=== PATIENT | female | born 1965 | race Caucasian/White ===

== ENCOUNTER 2018-10-28 07:38 | Inpatient (IN) | payer MEDICARE, BC ==
[~2018-10-28] VITALS: Ht 167.6 cm; Wt 68.1 kg
--- NOTE | 2018-10-28 08:19 | HPN ---
Date/Time of Note Date/Time of Note DATE: 10/28/18 TIME: 08:18 Interval H&P Admission Note Pt. seen H&P reviewed: No system changes TY BAILEY MD Oct 28, 2018 08:19
[2018-10-28] MEDS ORDERED: BACL10TA INTRACATH (08:40)
[2018-10-28] MEDS ORDERED: OMEP20CA16 PO (08:41)
[2018-10-28 08:43] VITALS: Ht 167.6 cm; Wt 68.1 kg
[2018-10-28 08:44] VITALS: BP 126/61; PULSE 79; RESP 18
[2018-10-28] MEDS ORDERED: FURO20TA3 PO (08:49)
[2018-10-28] MEDS ORDERED: CLIN300C10 PO (08:50)
[2018-10-28] MEDS ORDERED: SULF1TAB31 PO (08:50)
[2018-10-28] MEDS ORDERED: METR500T PO (08:51)
[2018-10-28] MEDS ORDERED: MIDAZOLAM 1 MG/ML 2 ML INJ ONE (08:52)
[2018-10-28] MEDS ORDERED: LIDOCAINE 2% (SDV) 5 ML INJ ONE (08:52)
[2018-10-28] MEDS ORDERED: FENTAnyl 50 MCG/ML VIAL ONE (08:52)
[2018-10-28] MEDS ORDERED: PROPOFOL 0 ML ONE (08:52)
[2018-10-28] MEDS ORDERED: CEFAZOLIN 1 GM INJ ONE (08:52)
[2018-10-28] MEDS ORDERED: LACTATED RINGER'S 1,000 ML IV SCH (09:00)
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
[2018-10-28] MEDS ORDERED: FUROSEMIDE 20 MG INJ IV ONE ×2 (11:30→22:05)
[2018-10-28] MEDS ORDERED: ZOLPIDEM 5 MG TAB PO PRN (11:30)
[2018-10-28] MEDS ORDERED: ACETAMINOPHEN 325 MG TAB PO PRN (11:30)
[2018-10-28] MEDS ORDERED: ONDANSETRON 4 MG INJ IV PRN (11:30)
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
[2018-10-28 12:35] VITALS: BP 104/51; PULSE 81; RESP 18
[2018-10-28] MEDS ORDERED: PIPER-TAZO 3.375 GM IV (PMX) 100 ML IVPB SCH (14:00)
[2018-10-28] MEDS: DEXTROSE 5%-0.45% NACL 1,000 ML IV SCH ×2 (14:00→22:42)
[2018-10-28] MEDS ORDERED: metroNIDAZOLE 500 MG/NS (PMX) 100 ML IVPB SCH (14:00)
[2018-10-28] MEDS: DOCUSATE SODIUM 100 MG CAP PO SCH ×2 (14:01→22:12)
--- NOTE | 2018-10-28 14:45 | RADRPT ---
Echocardiogram Report Patient Name: UJHI PUGAPatient ID: [id number] : 1965 (53y 7m)Study Date: 10/28/2018 12:40:39 PM Gender: FAccession #: [id number] Tech: Brendan Jose [facility] Location: [address] Ref.Physician: BIBI MUNIZ Height(Cm): BSA: Weight(Kg): Quality: Technically Difficult StudyAccount #: Procedures: Echocardiographic Report: Transthoracic echocardiogram with complete 2D, M-Mode, and doppler examination. Indications: Pre-op. Measurements: 2D/M Mode Doppler Measurement Value Normal Range Measurement Value Normal Range LVIDd 2D 4.4 [ 3.8 - 5.2 ] cm AV Peak Mario 1.9 [ 100.0 - 170.0 ] cm/sec LVIDs 2D 2.5 [ 2.2 - 3.5 ] cm AV Peak PG 14.0 [ 2.0 - 9.0 ] mmHg LVPWd 2D 1.0 [ 0.6 - 0.9 ] cm LVOT Peak Mario 1.4 [ 70.0 - 110.0 ] cm/sec IVSd 2D 1.0 [ 0.6 - 0.9 ] cm LVOT Peak PG 7.0 [ 2.0 - 6.0 ] mmHg AoR Diam 2D 2.0 [ 2.3 - 3.1 ] cm MV E Peak Mario 1.3 [ 60.0 - 130.0 ] cm/sec EDV 2D 88.6 [ 46.0 - 106.0 ] ml MV A Peak Mario 0.9 [ 100.0 - 120.0 ] cm/sec ESV 2D 21.7 [ 14.0 - 42.0 ] ml MV E/A 1.4 [ 0.8 - 1.5 ] ratio EF 2D 75.5 [ 54.0 - 74.0 ] percent MV Decel Time 123 [ 104 - 258 ] msec LA Dimen 2D 3.5 [ 2.7 - 3.8 ] cm Lat E` Mario 0.2 [ 10.0 - 15.0 ] cm/sec Lateral E/E` 7.6 [ 1.0 - 2.0 ] ratio Med E` Mario 0.1 cm/sec MV E/A 1.4 [ 0.8 - 1.5 ] ratio TR Peak Mario 2.5 [ 100.0 - 280.0 ] cm/sec TR Peak PG 24.0 mmHg RVSP 34.0 [ 10.0 - 36.0 ] mmHg Findings: Left Ventricle: Normal left ventricular systolic function. Normal left ventricular cavity size. Left ventricular wall thickness upper limits of normal. Ejection fraction is visually estimated at 65 %. Tissue Doppler/Mitral Doppler indices are within normal limits. Right Ventricle: Normal right ventricular size. Normal right ventricular systolic function. Left Atrium: The left atrium is normal in size. Right Atrium: The right atrium is normal in size. Mitral Valve: Mild mitral leaflet calcification. Mild mitral annular calcification. Trace mitral regurgitation. Aortic Valve: No significant aortic stenosis or insufficiency. Aortic cusps appear mildly calcified. Tricuspid Valve: Normal appearance of the tricuspid valve. Estimated peak PA systolic pressure 34 mmHg. There is mild tricuspid regurgitation. Pulmonic Valve: Normal pulmonic valve appearance. Pericardium: Normal pericardium with no significant pericardial effusion. Aorta: Normal aortic root. IVC: Normal size and normal respiratory collapse consistent with normal right atrial pressure. Conclusions: Normal left ventricular systolic function. Normal left ventricular cavity size. Left ventricular wall thickness upper limits of normal. Ejection fraction is visually estimated at 65 %. Tissue Doppler/Mitral Doppler indices are within normal limits. Mild mitral leaflet calcification. Mild mitral annular calcification. Trace mitral regurgitation. No significant aortic stenosis or insufficiency. Aortic cusps appear mildly calcified. Normal appearance of the tricuspid valve. Estimated peak PA systolic pressure 34 mmHg. There is mild tricuspid regurgitation. Electronically Signed By: Domenic Monreal 2018-10-28 14:44:06 [facility]
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
[2018-10-28] MEDS: LEVOFLOXACIN 750MG/D5W (PMX) 150 ML IVPB SCH (15:46)
[2018-10-28] MEDS: CLINDAMYCIN 900 MG/D5W (PMX) 50 ML IVPB SCH ×2 (18:09→22:41)
[2018-10-28] MEDS: PANTOPRAZOLE (EC) 40 MG TAB PO SCH (18:13)
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
[2018-10-28] MEDS ORDERED: COLLAGENASE 5 GM (UD JAR) TOP PRN (19:30)
[2018-10-28] MEDS ORDERED: PENDING SANTYL ORDER FOR WOUND CARE XX PRN (19:30)
[2018-10-28 20:35] VITALS: BP 104/56; PULSE 72; RESP 19
[2018-10-28] MEDS: BACLOFEN IT SCH (21:30)
[2018-10-28] MEDS: FAMOTIDINE 20 MG TAB PO SCH (21:57)
[2018-10-28] MEDS: COLLAGENASE 5 GM (UD JAR) TOP SCH (22:07)
[2018-10-29] VITALS (25 sets, daily range): BP systolic 102–138; BP diastolic 42–63; PULSE 63–97; RESP 10–20
[2018-10-29] MEDS: PANTOPRAZOLE (EC) 40 MG TAB PO SCH ×2 (05:24→18:32)
[2018-10-29] MEDS: CLINDAMYCIN 900 MG/D5W (PMX) 50 ML IVPB SCH ×3 (06:35→23:35)
[2018-10-29] MEDS ORDERED: SEVOFLURANE 15 MIN ONE (07:00)
[2018-10-29] MEDS ORDERED: LIDOCAINE 1% (MPF) 30 ML INJ ONE (07:12)
[2018-10-29] MEDS ORDERED: BUPIVACAINE 0.5% (SDV) 30 ML INJ ONE (07:12)
[2018-10-29] MEDS ORDERED: BUPIVACAINE 0.25% (MPF) 30 ML INJ ONE (07:12)
--- NOTE | 2018-10-29 07:29 | PREAC ---
Date/Time of Note Date/Time of Note DATE: 10/29/18 TIME: 07:27 Anesthesia Eval and Record Evaluation Time Pre-Procedure Interview DATE: 10/29/18 TIME: 07:27 Age 53 Sex female NPO: 8 hrs Preoperative diagnosis Left Middle finger infection Planned procedure Left Middle Finger I & D Past Medical History Past Medical History: Includes Cardio: HTN, Dyslipidemia Pulm: Sleep Apnea Neuro: CVA (Right Hemiparesis), Other Heme: Anemia Surgery & Anesthesia Issues No known issue Meds Anticoagulation: No Beta Ava within 24 hr: No Reason Beta Ava not given: Pt. not on B-Ava Reported Medications Metronidazole* (Flagyl*) 500 Mg Tablet, 500 MG PO BID, TAB 10/28/18 Sulfamethoxazole/Trimethoprim* (Bactrim Ds* Tablet) 1 Each Tablet, 2 TAB PO BID, TAB 10/28/18 Clindamycin Hcl* (Clindamycin Hcl*) 300 Mg Capsule, 300 MG PO Q8, CAP 10/28/18 Furosemide* (Furosemide*) 20 Mg Tablet, 20 MG PO DAILY, #60 TAB 10/28/18 Omeprazole* (Omeprazole*) 20 Mg Capsule.dr, 20 MG PO BID, #60 CAP 10/28/18 Baclofen* (Baclofen*) 10 Mg Tablet, 960 MCG INTRACATH DAILY, TAB 10/28/18 Current Medications Dextrose/Sodium Chloride 1,000 ml @ 75 mls/hr [id number] IV ; Start 10/28/18 at 11:08 Ondansetron HCl (Zofran Inj) 4 mg Q6H PRN IV NAUSEA/VOMITING; Start 10/28/18 at 11:30 Acetaminophen (Tylenol Tab) 650 mg Q6H PRN PO .PAIN 1-3 OR TEMP; Start 10/28/18 at 11:30 Docusate Sodium (Colace) 100 mg Q12H PO Last administered on 10/28/18at 22:12; Admin Dose 100 MG; Start 10/28/18 at 11:30 Zolpidem Tartrate (Ambien) 5 mg QHS PRN PO .INSOMNIA; Start 10/28/18 at 11:30 Famotidine (Pepcid) 20 mg Q12 PO Last administered on 10/28/18at 21:57; Admin Dose 20 MG; Start 10/28/18 at 21:00 Furosemide (Lasix) 20 mg DAILY PO ; Start 10/29/18 at 09:00 Pantoprazole (Protonix Tab) 40 mg BID@0600,1800 PO Last administered on 10/28/18at 18:13; Admin Dose 40 MG; Start 10/28/18 at 18:00 Levofloxacin/ Dextrose 150 ml @ 100 mls/hr Q24H IVPB Last administered on 10/28/18at 15:46; Admin Dose 100 MLS/HR; Start 10/28/18 at 13:00 Clindamycin HCl/ Dextrose 50 ml @ 50 mls/hr Q8 IVPB Last administered on 10/29/18at 06:35; Admin Dose 50 MLS/HR; Start 10/28/18 at 17:30 Collagenase (Santyl) 1 applic DAILY TOP Last administered on 10/28/18at 22:07; Admin Dose 1 APPLIC; Start 10/28/18 at 21:00 Collagenase (Santyl) 1 applic PRN PRN TOP WHEN SOILED; Start 10/28/18 at 19:30 Patient Own Medication 1 ea Q24H IT ; Start 10/28/18 at 21:30 Meds reviewed: Yes Allergies Coded Allergies: piperacillin (Verified Allergy, Unknown, 10/28/18) vancomycin (Verified Allergy, Unknown, 10/28/18) Allergies Reviewed: Yes Labs/Studies Labs Reviewed: Reviewed by anesthesiologist Result Diagram: 10/29/1842010/29/18420 Laboratory Tests 10/29/18 04:21 Blood Bank Test 10/28/18 09:27 Antibody Screen NEGATIVE Blood Product Summary Counts Blood Type A POSITIVE Crossmatch Red Blood Cells test: N/A Studies: ECG (NSR), CXR (n/a) Pre-procedure Exam Last vitals Vital Signs Date Temp Pulse Resp B/P (MAP) Pulse Ox O2 O2 Flow FiO2 Time Delivery Rate 10/29/18 99.1 97 18 102/53 95 00:47 (69) 10/28/18 Room Air 12:35 Airway: Adequate mouth opening, Adequate thyromental dist Mallampati: Mallampati II Teeth: Normal Lung: Normal Heart: Normal ASA Physical Status ASA physical status: 3 Emergency: None Planned Anesthetic General/MAC: ETT, LMA Planned Pain Management Parenteral pain med Pre-operative Attestations Prior to commencing anesthesia and surgery, the patient was re-evaluated, there was verification of: *The patient's identity *The results of appropriate recent lab work and preoperative vital signs *The above evaluation not changing prior to induction *Anesthetic plan, risk benefits, alternative and complications discussed with patient/family; questions answered; patient/family understands, accepts and wishes to proceed. GABRIEL DUQUE MD Oct 29, 2018 07:29
[2018-10-29] MEDS ORDERED: FENTAnyl 50 MCG/ML VIAL IV PRN ×2 (07:30)
[2018-10-29] MEDS ORDERED: LABETALOL HCL 20MG INJ IV PRN (07:30)
[2018-10-29] MEDS ORDERED: OXYCODONE/ACETAMINOPHEN (5/325) TAB PO PRN ×3 (07:30→09:00)
[2018-10-29] MEDS ORDERED: HYDROmorphONE 1 MG/5 ML IV SYRINGE IV PRN ×2 (07:30)
[2018-10-29] MEDS ORDERED: hydrALAzine 20 MG INJ IV PRN (07:30)
[2018-10-29] MEDS ORDERED: METOCLOPRAMIDE 10 MG INJ IV PRN (07:30)
[2018-10-29] MEDS ORDERED: EPHEDrine SULFATE 50 MG/5 ML SYG IV PRN (07:30)
[2018-10-29] MEDS ORDERED: ONDANSETRON 4 MG INJ IV PRN (07:30)
[2018-10-29] MEDS ORDERED: MIDAZOLAM 1 MG/ML 2 ML INJ ONE (07:45)
[2018-10-29] MEDS ORDERED: PROPOFOL 20 ML ONE (07:45)
[2018-10-29] MEDS ORDERED: ONDANSETRON 4 MG INJ ONE (08:22)
[2018-10-29] MEDS ORDERED: METOCLOPRAMIDE 10 MG INJ ONE (08:22)
[2018-10-29] MEDS ORDERED: FENTAnyl 50 MCG/ML VIAL ONE (08:22)
[2018-10-29] MEDS ORDERED: DEXAMETHASONE 4 MG/ML 5 ML INJ ONE (08:22)
--- NOTE | 2018-10-29 08:33 | SIPON ---
Date/Time of Note Date/Time of Note DATE: 10/29/18 TIME: 08:28 Operative Report Preoperative Diagnosis infected open fracture distal phalange left long finger infecdted tendon steath left long finger ruptutred fdp tendon sequestrum distal pahalange left long finger Postoperative Diagnosis same Operation/Procedure Performed i and sequestectomy debridgement Surgeon gianfranco catering assistant none Anesthesia: general Estimated blood loss: 10 - 50 ml's Transfusion Required preoo 3 units packed cells one unit in or Specimen junbck pus cutlurees sequestrium Grafts/Implants none Complications none TY BAILEY MD Oct 29, 2018 08:33
[2018-10-29] MEDS ORDERED: POLYMYXIN/BACITRACIN 1L IRRIG IRR ONE (08:35)
--- NOTE | 2018-10-29 08:37 | PAC ---
Date/Time of Note Date/Time of Note DATE: 10/29/18 TIME: 08:37 Post-Anesthesia Notes Post-Anesthesia Note Last documented vital signs Vital Signs Date Temp Pulse Resp B/P (MAP) Pulse Ox O2 O2 Flow FiO2 Time Delivery Rate 10/29/18 99.1 97 18 102/53 95 face mask 8L 08:47 (69) 10/28/18 Room Air 12:35 Activity: WNL Respiratory function: WNL Cardiovascular function: WNL Mental status: Baseline Pain reasonably controlled: Yes Hydration appropriate: Yes Nausea/Vomiting absent: Yes GABRIEL DUQUE MD Oct 29, 2018 08:37
--- NOTE | 2018-10-29 09:16 | OPR ---
DATE OF OPERATION: 10/29/2018 PREOPERATIVE DIAGNOSES: Infection of left hand long finger, open fracture distal phalanx and infected, osteomyelitis, distal phalanx and infected, flexor tendon sheath infection, rupture of the flexor digitorum profundus. POSTOPERATIVE DIAGNOSES: Infection of left hand long finger, open fracture distal phalanx and infected, osteomyelitis, distal phalanx and infected, flexor tendon sheath infection, rupture of the flexor digitorum profundus. OPERATION PERFORMED: Debridement, sequestrectomy, irrigation of the wounds, leave them open cultures. ANTHROPOLOGICAL LINGUIST: Staff. SAP HANA DEVELOPER: Rowdy Peoples M.D. ANESTHESIA: General anesthesia. HISTORY: The patient was about almost 3 weeks now since she has tried to feed her horse. The horse bit her finger. It swelled up, got massive infected. She came into my office in [place] draining gross pus out of the tip of the finger, finger swollen like a sausage and out straight. My assessment was that she had an infected open fracture undoubtedly an osteomyelitis probably involvement of the flexor tendons and rupture of the flexor tendons. On that Sunday, we did add a drain the wound just to decompress it and scheduled for surgical intervention here and I was going on vacation. [facility] They told me that they could not make any arrangements for an alternative surgeon, so I scheduled her yesterday and she was so anemic. The surgery was delayed while they got some blood in to her. Overnight she received 3 units of packed cells to get her hemoglobin up to a safe level and received 1 more unit this morning intraoperatively. She was that anemic. This is an ill lady. DESCRIPTION OF PROCEDURE: At surgery, we put Coban around the upper arm for hemostasis, open the draining wound on the dorsum of the finger at the proximal nail bed and excised proximal nail bed, proximal distal phalanx that sequestrum just soaked out. The base of the distal phalanx is gone and the insertion of the profundus tendon is gone. There was a draining sinus in the palm of the finger and communicated the flexor tendon sheath that was opened and debrided as well. We made one more incision on the dorsal finger, but there was no pus of the dorsal finger. We sent cultures, although point out to any reader that she has been pretreated for a week with other antibiotics. How much meaning the cultures will have at this time is doubtful because the pretreatment will give either negative or false results. We irrigated the wound copiously and then packed everything open, put a bulky dressing on. Her finger today as compared to last week is actually less swollen. The drainage helps. She is an inpatient now on IV antibiotics and we will treat her as an inpatient for a few days until IV antibiotics can be established at home and then I will follow up on her as an outpatient. The patient will be seen by the hospitalist and by Dr. Paige, infectious disease. Discussion The hoped for result would be resolution of the infection. Closure of the wounds by secondary intention. I use zero sutures, The wounds were all packed open. I plan to do the dressing changes in the office next sunday. We will change the dressings ourselves, serially until she closures the wounds by herself. I plan to splint the dip joint in neutral extension for months untill she - hopefully- forms a painless pseudoarthrois at the level of the now excessed dpi joint. We will start motion of the pip joint as soon as practicable and hope for some motion there with time. Dictated By: TY DAHL/NTS Conf#: [id number] DID#: [id number] CC: BIBI MUNIZ MD; TY BAILEY MD;*EndCC* MTDD
--- NOTE | 2018-10-29 11:08 | CONS ---
Consult Date/Type/Reason Admit Date/Time Oct 28, 2018 at 10:55 Initial Consult Date 10/28/18 Type of Consultation: cv Date/Time of Note DATE: 10/29/18 TIME: 11:04 Subjective Interventional cardiology follow-up progress note Subjective: Case discussed with the . Discussed with the staff. Patient with no chest pain or pressure. Denies any active bleeding to me. No shortness of breath to me. According to the patient has a history of anemia and has had Haque's esophagus but has not had any regular follow-up Events noted: Status post debridement 10/29/2018 Objective: General: no acute distress HEENT: NC/AT. pupils are equal. round. NECK: NO JVD. no stridor. CV: RRR. systolic murmur; no gallop or rubs. PULM: no wheezing or rhonchi. GI: SOFT, NT, ND, no rebound or guarding Extremity: Right upper extremity is contracted Left hand finger edematous is in dressing neuro: awake and alert, OX2. Psych: calm and pleasant rectal: deferred l Echocardiogram was personally reviewed which shows: Normal left ventricular systolic function. Normal left ventricular cavity size. Left ventricular wall thickness upper limits of normal. Ejection fraction is visually estimated at 65 %. Tissue Doppler/Mitral Doppler indices are within normal limits. Mild mitral leaflet calcification. Mild mitral annular calcification. Trace mitral regurgitation. No significant aortic stenosis or insufficiency. Aortic cusps appear mildly calcified. Normal appearance of the tricuspid valve. Estimated peak PA systolic pressure 34 mmHg. There is mild tricuspid regurgitation. EKG was personally reviewed which shows: Normal sinus rhythm. Low voltage. Cannot rule anterior infarct Objective Vitals Vital Signs Date Temp Pulse Resp B/P (MAP) Pulse Ox O2 O2 Flow FiO2 Time Delivery Rate 10/29/18 98.0 74 112/60 95 Nasal 09:51 (77) Cannula 10/29/18 12 3.0 09:32 Intake and Output 10/28/18 10/28/18 10/29/18 1515:00 23:00 07:00 IntakeIntake Total 1270 ml 50 ml OutputOutput Total 750 ml BalanceBalance 520 ml 50 ml Results/Medications Result Diagram: 10/29/18 0421 10/29/18 0421 Results 24 hrs Laboratory Tests Test 10/28/18 14:45 10/28/18 22:00 10/29/18 04:21 10/29/18 07:13 Urine Color YELLOW Urine Clarity SLIGHTLY CLOUDY A Urine pH 7.0 Urine Specific 1.015 [place] Urine Ketones NEGATIVE Urine Nitrite NEGATIVE Urine Bilirubin NEGATIVE Urine NEGATIVE Urobilinogen Urine Leukocyte NEGATIVE Esterase Urine 6 H Microscopic RBC Urine 1 Microscopic WBC Urine Squamous FEW Epithelial Cells Urine Mucus FEW A Urine Hemoglobin NEGATIVE Urine Glucose NEGATIVE Urine Total NEGATIVE Protein White Blood 6.6 # 9.0 # Count Red Blood Count 3.88 L 4.36 Hemoglobin 6.9 #*L 8.0 L Hematocrit 25.3 L 28.5 L Mean Corpuscular 65.2 L 65.4 L Volume Mean Corpuscular 17.8 #L 18.3 L Hemoglobin Mean Corpuscular 27.3 L 28.1 L Hemoglobin Shahrzad nt Red Cell 29.0 #H 29.3 H Distribution Width Platelet Count 587 H 546 H Mean Platelet 9.2 9.1 Volume Immature 0.300 0.300 Granulocytes % Neutrophils % 71.8 76.6 Lymphocytes % 15.9 12.4 L Monocytes % 11.0 10.1 Eosinophils % 0.5 0.2 Basophils % 0.5 0.4 Nucleated Red 1.4 H 2 H Blood Cells % Immature 0.020 0.030 Granulocytes # Neutrophils # 4.7 6.9 Lymphocytes # 1.0 1.1 Monocytes # 0.7 0.9 Eosinophils # 0.0 0.0 Basophils # 0.0 0.0 Nucleated Red 0.1 H 0.1 H Blood Cells # Segmented 75 Neutrophils % (Manual) Band Neutrophils 3 % (Manual) Lymphocytes % 15 (Manual) Monocytes % 7 (Manual) Neutrophils # 6.8 (Manual) Band Neutrophils 0.2 # Lymphocytes 1.3 (Manual) Monocytes # 0.6 (Manual) Platelet INCREASED Estimate Polychromasia 3+ Hypochromasia 3+ Poikilocytosis 2+ Anisocytosis 3+ Microcytosis 3+ Sodium Level 138 Potassium Level 4.1 Chloride Level 100 Carbon Dioxide 30 Level Anion Gap 8 Blood Urea 14 Nitrogen Creatinine 0.75 Est Glomerular > 60 Filtrat Rate mL/min Glucose Level 71 Calcium Level 8.4 Phosphorus Level 3.2 Magnesium Level 1.5 L Total Bilirubin 0.4 Direct Bilirubin 0.00 Indirect 0.4 Bilirubin Aspartate Amino 23 Transf (AST/SGOT ) Alanine 26 Aminotransferase (ALT/SGPT) Alkaline 120 Phosphatase Total Protein 6.4 Albumin 3.0 L Globulin 3.40 H Albumin/Globulin 0.88 Ratio Lab Scanned BLOOD TRANSFUSI Report ON Home Meds Reported Medications Metronidazole* (Flagyl*) 500 Mg Tablet, 500 MG PO BID, TAB 10/28/18 Sulfamethoxazole/Trimethoprim* (Bactrim Ds* Tablet) 1 Each Tablet, 2 TAB PO BID, TAB 10/28/18 Clindamycin Hcl* (Clindamycin Hcl*) 300 Mg Capsule, 300 MG PO Q8, CAP 10/28/18 Furosemide* (Furosemide*) 20 Mg Tablet, 20 MG PO DAILY, #60 TAB 10/28/18 Omeprazole* (Omeprazole*) 20 Mg Capsule.dr, 20 MG PO BID, #60 CAP 10/28/18 Baclofen* (Baclofen*) 10 Mg Tablet, 960 MCG INTRACATH DAILY, TAB 10/28/18 Medications Current Medications Dextrose/Sodium Chloride 1,000 ml @ 75 mls/hr [id number] IV ; Start 10/28/18 at 11:08 Ondansetron HCl (Zofran Inj) 4 mg Q6H PRN IV NAUSEA/VOMITING; Start 10/28/18 at 11:30 Acetaminophen (Tylenol Tab) 650 mg Q6H PRN PO .PAIN 1-3 OR TEMP; Start 10/28/18 at 11:30 Docusate Sodium (Colace) 100 mg Q12H PO Last administered on 10/28/18at 22:12; Admin Dose 100 MG; Start 10/28/18 at 11:30 Zolpidem Tartrate (Ambien) 5 mg QHS PRN PO .INSOMNIA; Start 10/28/18 at 11:30 Famotidine (Pepcid) 20 mg Q12 PO Last administered on 10/28/18at 21:57; Admin Dose 20 MG; Start 10/28/18 at 21:00 Furosemide (Lasix) 20 mg DAILY PO ; Start 10/29/18 at 09:00 Pantoprazole (Protonix Tab) 40 mg BID@0600,1800 PO Last administered on 10/28/18at 18:13; Admin Dose 40 MG; Start 10/28/18 at 18:00 Levofloxacin/ Dextrose 150 ml @ 100 mls/hr Q24H IVPB Last administered on 10/28/18at 15:46; Admin Dose 100 MLS/HR; Start 10/28/18 at 13:00 Clindamycin HCl/ Dextrose 50 ml @ 50 mls/hr Q8 IVPB Last administered on 10/29/18at 06:35; Admin Dose 50 MLS/HR; Start 10/28/18 at 17:30 Collagenase (Santyl) 1 applic DAILY TOP Last administered on 10/28/18at 22:07; Admin Dose 1 APPLIC; Start 10/28/18 at 21:00 Collagenase (Santyl) 1 applic PRN PRN TOP WHEN SOILED; Start 10/28/18 at 19:30 Patient Own Medication 1 ea Q24H IT ; Start 10/28/18 at 21:30 Hydromorphone HCl (Dilaudid) 0.2 mg PACU PRN IV MILD PAIN 1-3; Start 10/29/18 at 07:30; Stop 10/29/18 at 11:30 Hydromorphone HCl (Dilaudid) 0.4 mg PACU PRN IV MOD PAIN 4-6; Start 10/29/18 at 07:30; Stop 10/29/18 at 11:30 Fentanyl (Sublimaze) 25 mcg PACU ORDER PRN IV MILD PAIN 1-3; Start 10/29/18 at 07:30; Stop 10/29/18 at 11:30 Fentanyl (Sublimaze) 50 mcg PACU ORDER PRN IV MOD PAIN 4-6; Start 10/29/18 at 07:30; Stop 10/29/18 at 11:30 Oxycodone/ Acetaminophen (Percocet (5/ 325)) 1 tab PACU ORDER PRN PO .PAIN 1-5; Start 10/29/18 at 07:30; Stop 10/29/18 at 11:30 Ondansetron HCl (Zofran Inj) 4 mg PACU ORDER PRN IV NAUSEA/VOMITING; Start 10/29/18 at 07:30; Stop 10/29/18 at 11:30 Metoclopramide HCl (Reglan) 10 mg PACU ORDER PRN IV NAUSEA/VOMITING; Start 10/29/18 at 07:30; Stop 10/29/18 at 11:30 Labetalol HCl (Labetalol) 5 mg PACU ORDER PRN IV HIGH BLOOD PRESSURE; Start 10/29/18 at 07:30; Stop 10/29/18 at 11:30 Hydralazine HCl (Apresoline) 5 mg PACU ORDER PRN IV HIGH BLOOD PRESSURE; Start 10/29/18 at 07:30; Stop 10/29/18 at 11:30 Ephedrine Sulfate 5 mg PACU ORDER PRN IV BLOOD PRESSURE SUPPORT; Start 10/29/18 at 07:30; Stop 10/29/18 at 11:30 Oxycodone/ Acetaminophen (Percocet (5/ 325)) 1 tab Q4H PRN PO PAIN LEVEL 4-6; Start 10/29/18 at 09:00 Oxycodone/ Acetaminophen (Percocet (5/ 325)) 2 tab Q4H PRN PO PAIN LEVEL 6-10; Start 10/29/18 at 09:00 Assessment/Plan Hospital Course (Demo Recall) 1. Cardiovascular preop evaluation 2. Left finger infection/possible osteomyelitis: Status post IND 3. Severe anemia 4. History of anoxic brain injury and encephalopathy 5. Abnormal EKG but normal ejection fraction and echo 6. History of Haque's esophagus Recommendations: Postop care as per order to Transfusions as needed PPIs Consider GI consultation Thank you for his referral. We will continue to follow along with you TRACY CHAUDHARY MD [facility] TRACY CHAUDHARY MD Oct 29, 2018 11:08
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
[2018-10-29] MEDS: DOCUSATE SODIUM 100 MG CAP PO SCH (13:39)
[2018-10-29] MEDS: LEVOFLOXACIN 750MG/D5W (PMX) 150 ML IVPB SCH (13:39)
[2018-10-29] MEDS: FAMOTIDINE 20 MG TAB PO SCH (13:39)
[2018-10-29] MEDS: FUROSEMIDE 20 MG TAB PO SCH (13:47)
[2018-10-29] MEDS: DEXTROSE 5%-0.45% NACL 1,000 ML IV SCH (13:48)
--- NOTE | 2018-10-29 15:19 | CONS ---
Assessment/Plan Assessment/Plan Hospital Course (Demo Recall) Patient is awake and lying comfortably in bed no fevers overnight. WBC 9 no shift no bands BUN 14 creatinine 0.75 Wound cultures are pending Antimicrobials: Clindamycin and Levaquin Allergy: Lucho Mahoney Physical examination: Well-developed ill-appearing middle-aged woman who is awake in no distress. Head atraumatic normocephalic neck is supple chest rise symmetrical breath sounds diminished bases. Heart: S1-S2. Abdomen soft bowel sounds present. Extremities: Left hand dressing intact. Patient has multiple pressure sores on her lower extremities Assessment: 1. Infected left long finger/osteomyelitis, status post debridement 2. Multiple pressure sores lower extremities 3. History of OR 4. History of CVA Plan: Patient is stable I do not see cultures of the wound of her finger in a computer. She will require intravenous antibiotics for 6 weeks to treat osteomyelitis. Recommend PICC line placement. We may discharge her on IV daptomycin once a day and oral levofloxacin unless cultures show some growth then we adjust antibiotics per sensitivities Consultation Date/Type/Reason Admit Date/Time Oct 28, 2018 at 10:55 Initial Consult Date 10/28/18 Type of Consult id Date/Time of Note DATE: 10/29/18 TIME: 15:18 Exam/Review of Systems Exam Vitals Vital Signs Date Temp Pulse Resp B/P (MAP) Pulse Ox O2 O2 Flow FiO2 Time Delivery Rate 10/29/18 98.9 74 20 114/63 94 Nasal 14:10 (80) Cannula 10/29/18 3.0 09:32 Intake and Output 10/28/18 10/28/18 10/29/18 1515:00 23:00 07:00 IntakeIntake Total 1270 ml 50 ml OutputOutput Total 750 ml BalanceBalance 520 ml 50 ml Results Result Diagram: 10/29/18 0421 10/29/18 0421 Results 24hrs Laboratory Tests Test 10/28/18 22:00 10/29/18 04:21 10/29/18 07:13 White Blood Count 6.6 # 9.0 # Red Blood Count 3.88 L 4.36 Hemoglobin 6.9 #*L 8.0 L Hematocrit 25.3 L 28.5 L Mean Corpuscular Volume 65.2 L 65.4 L Mean Corpuscular Hemoglobin 17.8 #L 18.3 L Mean Corpuscular 27.3 L 28.1 L Hemoglobin Concent Red Cell Distribution Width 29.0 #H 29.3 H Platelet Count 587 H 546 H Mean Platelet Volume 9.2 9.1 Immature Granulocytes % 0.300 0.300 Neutrophils % 71.8 76.6 Lymphocytes % 15.9 12.4 L Monocytes % 11.0 10.1 Eosinophils % 0.5 0.2 Basophils % 0.5 0.4 Nucleated Red Blood Cells % 1.4 H 2 H Immature Granulocytes # 0.020 0.030 Neutrophils # 4.7 6.9 Lymphocytes # 1.0 1.1 Monocytes # 0.7 0.9 Eosinophils # 0.0 0.0 Basophils # 0.0 0.0 Nucleated Red Blood Cells # 0.1 H 0.1 H Segmented Neutrophils 75 % (Manual) Band Neutrophils % (Manual) 3 Lymphocytes % (Manual) 15 Monocytes % (Manual) 7 Neutrophils # (Manual) 6.8 Band Neutrophils # 0.2 Lymphocytes (Manual) 1.3 Monocytes # (Manual) 0.6 Platelet Estimate INCREASED Polychromasia 3+ Hypochromasia 3+ Poikilocytosis 2+ Anisocytosis 3+ Microcytosis 3+ Sodium Level 138 Potassium Level 4.1 Chloride Level 100 Carbon Dioxide Level 30 Anion Gap 8 Blood Urea Nitrogen 14 Creatinine 0.75 Est Glomerular Filtrat > 60 Rate mL/min Glucose Level 71 Calcium Level 8.4 Phosphorus Level 3.2 Magnesium Level 1.5 L Total Bilirubin 0.4 Direct Bilirubin 0.00 Indirect Bilirubin 0.4 Aspartate Amino 23 Transf (AST/SGOT) Alanine 26 Aminotransferase (ALT/SGPT) Alkaline Phosphatase 120 Total Protein 6.4 Albumin 3.0 L Globulin 3.40 H Albumin/Globulin Ratio 0.88 Lab Scanned Report BLOOD TRANSFUSION Medications Medication Current Medications Dextrose/Sodium Chloride 1,000 ml @ 75 mls/hr [id number] IV ; Start 10/28/18 at 11:08 Ondansetron HCl (Zofran Inj) 4 mg Q6H PRN IV NAUSEA/VOMITING; Start 10/28/18 at 11:30 Acetaminophen (Tylenol Tab) 650 mg Q6H PRN PO .PAIN 1-3 OR TEMP; Start 10/28/18 at 11:30 Docusate Sodium (Colace) 100 mg Q12H PO Last administered on 10/29/18at 13:39; Admin Dose 100 MG; Start 10/28/18 at 11:30 Zolpidem Tartrate (Ambien) 5 mg QHS PRN PO .INSOMNIA; Start 10/28/18 at 11:30 Famotidine (Pepcid) 20 mg Q12 PO Last administered on 10/29/18 13:39; Admin Dose 20 MG; Start 10/28/18 at 21:00 Furosemide (Lasix) 20 mg DAILY PO Last administered on 10/29/18 13:47; Admin Dose 20 MG; Start 10/29/18 at 09:00 Pantoprazole (Protonix Tab) 40 mg BID@0600,1800 PO Last administered on 18:13; Admin Dose 40 MG; Start 10/28/18 at 18:00 Levofloxacin/ Dextrose 150 ml @ 100 mls/hr Q24H IVPB Last administered on 10/29/18 13:39; Admin Dose 100 MLS/HR; Start 10/28/18 at 13:00 Clindamycin HCl/ Dextrose 50 ml @ 50 mls/hr Q8 IVPB Last administered on 10/29/18 06:35; Admin Dose 50 MLS/HR; Start 10/28/18 at 17:30 Collagenase (Santyl) 1 applic DAILY TOP Last administered on 10/28/18 22:07; Admin Dose 1 APPLIC; Start 10/28/18 at 21:00 Collagenase (Santyl) 1 applic PRN PRN TOP WHEN SOILED; Start 10/28/18 at 19:30 Patient Own Medication 1 ea Q24H IT ; Start 10/28/18 at 21:30 Oxycodone/ Acetaminophen (Percocet (5/ 325)) 1 tab Q4H PRN PO PAIN LEVEL 4-6; Start 10/29/18 at 09:00 Oxycodone/ Acetaminophen (Percocet (5/ 325)) 2 tab Q4H PRN PO PAIN LEVEL 6-10; Start 10/29/18 at 09:00 STEPHANIE CROW NP Oct 29, 2018 15:19
[2018-10-29] MEDS: COLLAGENASE 5 GM (UD JAR) TOP SCH (16:00)
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
[2018-10-29] MEDS ORDERED: BISACODYL (EC) 5 MG TAB PO ONE (18:30)
[2018-10-29] MEDS ORDERED: MAGNESIUM CITRATE 300 ML BTL PO ONE (20:00)
[2018-10-29] MEDS: BALSAM PERU/CASTOR OIL 60 GM TUBE TOP SCH ×2 (20:46)
[2018-10-29] MEDS ORDERED: POLYETHYLENE GLYCOL 3350 119 GM POWDER PO ONE (21:00)
[2018-10-29] MEDS: BACLOFEN IT SCH (21:01)
[2018-10-30] MEDS: DOCUSATE SODIUM 100 MG CAP PO SCH ×3 (00:29→22:40)
[2018-10-30 02:27] VITALS: BP 104/55; PULSE 65; RESP 16
[2018-10-30] MEDS: DEXTROSE 5%-0.45% NACL 1,000 ML IV SCH ×2 (02:59→07:58)
[2018-10-30] MEDS: PANTOPRAZOLE (EC) 40 MG TAB PO SCH ×2 (05:52→17:41)
[2018-10-30] MEDS: CLINDAMYCIN 900 MG/D5W (PMX) 50 ML IVPB SCH ×2 (05:52→14:22)
[2018-10-30] MEDS ORDERED: POLYETHYLENE GLYCOL 3350 119 GM POWDER PO ONE (06:00)
[2018-10-30] MEDS ORDERED: PROPOFOL 200 MG INJ ONE (07:00)
[2018-10-30 08:00] VITALS: BP 110/64; PULSE 80; RESP 18
[2018-10-30] MEDS ORDERED: BISACODYL (EC) 5 MG TAB PO ONE (08:00)
[2018-10-30] MEDS: BALSAM PERU/CASTOR OIL 60 GM TUBE TOP SCH ×4 (08:57→20:05)
[2018-10-30] MEDS: COLLAGENASE 5 GM (UD JAR) TOP SCH (08:57)
[2018-10-30] MEDS: FUROSEMIDE 20 MG TAB PO SCH (08:58)
--- NOTE | 2018-10-30 10:25 | CONS ---
Consult Date/Type/Reason Admit Date/Time Oct 28, 2018 at 10:55 Initial Consult Date 10/28/18 Type of Consultation: cv Date/Time of Note DATE: 10/30/18 TIME: 10:24 Subjective Interventional cardiology follow-up progress note Subjective: Case discussed with the . Discussed with the staff. Patient with no chest pain or pressure. Denies any active bleeding to me. she denies any shortness of breath to me. According to the patient has a history of anemia and has had Haque's esophagus but has not had any regular follow-up awaiting endoscopy Events noted: Status post debridement 10/29/2018 Objective: General: no acute distress HEENT: NC/AT. pupils are equal. round. NECK: NO JVD. no stridor. CV: RRR. systolic murmur; no gallop or rubs. PULM: no wheezing or rhonchi. GI: SOFT, NT, ND, no rebound or guarding Extremity: Right upper extremity is contracted Left hand finger edematous is in dressing neuro: awake and alert, OX2. Psych: calm and pleasant rectal: deferred l Echocardiogram was personally reviewed which shows: Normal left ventricular systolic function. Normal left ventricular cavity size. Left ventricular wall thickness upper limits of normal. Ejection fraction is visually estimated at 65 %. Tissue Doppler/Mitral Doppler indices are within normal limits. Mild mitral leaflet calcification. Mild mitral annular calcification. Trace mitral regurgitation. No significant aortic stenosis or insufficiency. Aortic cusps appear mildly calcified. Normal appearance of the tricuspid valve. Estimated peak PA systolic pressure 34 mmHg. There is mild tricuspid regurgitation. EKG was personally reviewed which shows: Normal sinus rhythm. Low voltage. Cannot rule anterior infarct Objective Vitals Vital Signs Date Temp Pulse Resp B/P (MAP) Pulse Ox O2 O2 Flow FiO2 Time Delivery Rate 10/30/18 97.8 80 18 110/64 96 08:00 (79) 10/30/18 Room Air 00:33 10/29/18 2.0 11:00 Intake and Output 10/29/18 10/29/18 10/30/18 1515:00 23:00 07:00 IntakeIntake Total 1230 ml 1520 ml 200 ml OutputOutput Total 60 ml 4000 ml BalanceBalance 1170 ml -2480 ml 200 ml Results/Medications Result Diagram: 10/29/181 10/29/18 0421 Results 24 hrs Laboratory Tests Test 10/30/18 03:00 Stool Occult Blood NEGATIVE Home Meds Reported Medications Metronidazole* (Flagyl*) 500 Mg Tablet, 500 MG PO BID, TAB 10/28/18 Sulfamethoxazole/Trimethoprim* (Bactrim Ds* Tablet) 1 Each Tablet, 2 TAB PO BID, TAB 10/28/18 Clindamycin Hcl* (Clindamycin Hcl*) 300 Mg Capsule, 300 MG PO Q8, CAP 10/28/18 Furosemide* (Furosemide*) 20 Mg Tablet, 20 MG PO DAILY, #60 TAB 10/28/18 Omeprazole* (Omeprazole*) 20 Mg Capsule.dr, 20 MG PO BID, #60 CAP 10/28/18 Baclofen* (Baclofen*) 10 Mg Tablet, 960 MCG INTRACATH DAILY, TAB 10/28/18 Medications Current Medications Dextrose/Sodium Chloride 1,000 ml @ 75 mls/hr [id number] IV Last administered on 10/30/18at 07:58; Admin Dose 75 MLS/HR; Start 10/28/18 at 11:08 Ondansetron HCl (Zofran Inj) 4 mg Q6H PRN IV NAUSEA/VOMITING Last administered on 10/29/18at 23:35; Admin Dose 4 MG; Start 10/28/18 at 11:30 Acetaminophen (Tylenol Tab) 650 mg Q6H PRN PO .PAIN 1-3 OR TEMP; Start 10/28/18 at 11:30 Docusate Sodium (Colace) 100 mg Q12H PO Last administered on 10/30/18at 00:29; Admin Dose 100 MG; Start 10/28/18 at 11:30 Zolpidem Tartrate (Ambien) 5 mg QHS PRN PO .INSOMNIA; Start 10/28/18 at 11:30 Furosemide (Lasix) 20 mg DAILY PO Last administered on 10/30/18at 08:58; Admin Dose 20 MG; Start 10/29/18 at 09:00 Pantoprazole (Protonix Tab) 40 mg BID@0600,1800 PO Last administered on 10/05 03/21at 05:52; Admin Dose 40 MG; Start 10/28/18 at 18:00 Levofloxacin/ Dextrose 150 ml @ 100 mls/hr Q24H IVPB Last administered on 10/29/18at 13:39; Admin Dose 100 MLS/HR; Start 10/28/18 at 13:00 Clindamycin HCl/ Dextrose 50 ml @ 50 mls/hr Q8 IVPB Last administered on 10/30/18at 05:52; Admin Dose 50 MLS/HR; Start 10/28/18 at 17:30 Collagenase (Santyl) 1 applic DAILY TOP Last administered on 10/30/18at 08:57; Admin Dose 1 APPLIC; Start 10/28/18 at 21:00 Patient Own Medication 1 ea Q24H IT ; Start 10/28/18 at 21:30 Oxycodone/ Acetaminophen (Percocet (5/ 325)) 1 tab Q4H PRN PO PAIN LEVEL 4-6; Start 10/29/18 at 09:00 Oxycodone/ Acetaminophen (Percocet (5/ 325)) 2 tab Q4H PRN PO PAIN LEVEL 6-10; Start 10/29/18 at 09:00 Assessment/Plan Hospital Course (Demo Recall) 1. Cardiovascular preop evaluation 2. Left finger infection/possible osteomyelitis: Status post IND 3. Severe anemia 4. History of anoxic brain injury and encephalopathy 5. Abnormal EKG but normal ejection fraction and echo 6. History of Haque's esophagus Recommendations: Postop care as per ortho Transfusions as needed PPIs follow up with GI consultation recommendations. Patient is awaiting endoscopy today. Patient is a stable from the cardiac standpoint for endoscopy with low risk of cardiovascular event. No further cardiac workup would be indicated. Thank you for his referral. We will continue to follow along with you TRACY CHAUDHARY MD [facility] TRACY CHAUDHARY MD Oct 30, 2018 10:25
[2018-10-30] MEDS: LEVOFLOXACIN 750MG/D5W (PMX) 150 ML IVPB SCH (12:53)
[2018-10-30 14:00] VITALS: BP 118/64; PULSE 88; RESP 18
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
[2018-10-30] MEDS ORDERED: TETANUS IMMUNE GLOB 250 UNIT SYG IM ONE (15:00)
[2018-10-30] MEDS ORDERED: LIDOCAINE 1% (MPF) 5 ML VIAL SC ONE (15:00)
[2018-10-30 15:32] VITALS: BP 109/60; PULSE 58; RESP 16
--- NOTE | 2018-10-30 15:46 | PREAC ---
Date/Time of Note Date/Time of Note DATE: 10/30/18 TIME: 15:44 Anesthesia Eval and Record Evaluation Time Pre-Procedure Interview DATE: 10/30/18 TIME: 15:44 Age 53 Sex female NPO: 8 hrs Preoperative diagnosis Severe Anemia Planned procedure EGD & Colonoscopy Past Medical History Past Medical History: Includes Cardio: Dyslipidemia Pulm: Sleep Apnea Neuro: CVA, Other (Right Hermiparesis) Heme: Anemia Surgery & Anesthesia Issues No known issue Meds Anticoagulation: No Beta Ava within 24 hr: No Reason Beta Ava not given: Pt. not on B-Ava Reported Medications Metronidazole* (Flagyl*) 500 Mg Tablet, 500 MG PO BID, TAB 10/28/18 Sulfamethoxazole/Trimethoprim* (Bactrim Ds* Tablet) 1 Each Tablet, 2 TAB PO BID, TAB 10/28/18 Clindamycin Hcl* (Clindamycin Hcl*) 300 Mg Capsule, 300 MG PO Q8, CAP 10/28/18 Furosemide* (Furosemide*) 20 Mg Tablet, 20 MG PO DAILY, #60 TAB 10/28/18 Omeprazole* (Omeprazole*) 20 Mg Capsule.dr, 20 MG PO BID, #60 CAP 10/28/18 Baclofen* (Baclofen*) 10 Mg Tablet, 960 MCG INTRACATH DAILY, TAB 10/28/18 Current Medications Dextrose/Sodium Chloride 1,000 ml @ 75 mls/hr [id number] IV Last administered on 10/30/18at 07:58; Admin Dose 75 MLS/HR; Start 10/28/18 at 11:08 Ondansetron HCl (Zofran Inj) 4 mg Q6H PRN IV NAUSEA/VOMITING Last administered on 10/29/18at 23:35; Admin Dose 4 MG; Start 10/28/18 at 11:30 Acetaminophen (Tylenol Tab) 650 mg Q6H PRN PO .PAIN 1-3 OR TEMP; Start 10/28/18 at 11:30 Docusate Sodium (Colace) 100 mg Q12H PO Last administered on 10/30/18at 00:29; Admin Dose 100 MG; Start 10/28/18 at 11:30 Zolpidem Tartrate (Ambien) 5 mg QHS PRN PO .INSOMNIA; Start 10/28/18 at 11:30 Furosemide (Lasix) 20 mg DAILY PO Last administered on 10/30/18at 08:58; Admin Dose 20 MG; Start 10/29/18 at 09:00 Pantoprazole (Protonix Tab) 40 mg BID@0600,1800 PO Last administered on 10/30/18at 05:52; Admin Dose 40 MG; Start 10/28/18 at 18:00 Levofloxacin/ Dextrose 150 ml @ 100 mls/hr Q24H IVPB Last administered on 10/30/18at 12:53; Admin Dose 100 MLS/HR; Start 10/28/18 at 13:00 Clindamycin HCl/ Dextrose 50 ml @ 50 mls/hr Q8 IVPB Last administered on 10/30/18at 14:22; Admin Dose 50 MLS/HR; Start 10/28/18 at 17:30 Collagenase (Santyl) 1 applic DAILY TOP Last administered on 10/30/18at 08:57; Admin Dose 1 APPLIC; Start 10/28/18 at 21:00 Patient Own Medication 1 ea Q24H IT ; Start 10/28/18 at 21:30 Oxycodone/ Acetaminophen (Percocet (5/ 325)) 1 tab Q4H PRN PO PAIN LEVEL 4-6; Start 10/29/18 at 09:00 Oxycodone/ Acetaminophen (Percocet (5/ 325)) 2 tab Q4H PRN PO PAIN LEVEL 6-10; Start 10/29/18 at 09:00 Enoxaparin Sodium (Lovenox) 40 mg DAILY SC ; Start 10/31/18 at 09:00 Meds reviewed: Yes Allergies Coded Allergies: piperacillin (Verified Allergy, Unknown, 10/28/18) vancomycin (Verified Allergy, Unknown, 10/28/18) Allergies Reviewed: Yes Labs/Studies Labs Reviewed: Reviewed by anesthesiologist Result Diagram: 10/29/1842010/29/18420 test: N/A Studies: ECG (n/a), CXR (n/a) Pre-procedure Exam Last vitals Vital Signs Date Temp Pulse Resp B/P (MAP) Pulse Ox O2 O2 Flow FiO2 Time Delivery Rate 10/30/18 97.9 58 16 109/60 97 Room Air 15:32 (76) 10/29/18 2.0 11:00 Airway: Adequate mouth opening, Adequate thyromental dist Mallampati: Mallampati II Teeth: Normal Lung: Normal Heart: Normal ASA Physical Status ASA physical status: 3 Emergency: None Planned Anesthetic General/MAC: MAC Planned Pain Management Parenteral pain med Pre-operative Attestations Prior to commencing anesthesia and surgery, the patient was re-evaluated, there was verification of: *The patient's identity *The results of appropriate recent lab work and preoperative vital signs *The above evaluation not changing prior to induction *Anesthetic plan, risk benefits, alternative and complications discussed with patient/family; questions answered; patient/family understands, accepts and wishes to proceed. GABRIEL DUQUE MD Oct 30, 2018 15:46
--- NOTE | 2018-10-30 15:48 | CONS ---
Assessment/Plan Assessment/Plan Hospital Course (Demo Recall) Patient is awake, looks comfortable, no fevers Wound cultures + diptheroids Antimicrobials: Clindamycin and Levaquin Allergy: Lucho Mahoney Physical examination: Well-developed ill-appearing middle-aged woman who is awake in no distress. Head atraumatic normocephalic neck is supple chest rise symmetrical breath sounds diminished bases. Heart: S1-S2. Abdomen soft bowel sounds present. Extremities: Left hand dressing intact. Patient has multiple pressure sores on her lower extremities Assessment: 1. Infected left long finger/osteomyelitis, status post debridement 2. Multiple pressure sores lower extremities 3. History of PR 4. History of CVA Plan: Patient is stable, change abx to Daptomycin and oral Levaquin to continue for 6 weeks, pending PICC, to GI lab today Consultation Date/Type/Reason Admit Date/Time Oct 28, 2018 at 10:55 Initial Consult Date 10/28/18 Type of Consult id Date/Time of Note DATE: 10/30/18 TIME: 15:46 Exam/Review of Systems Exam Vitals Vital Signs Date Temp Pulse Resp B/P (MAP) Pulse Ox O2 O2 Flow FiO2 Time Delivery Rate 10/30/18 97.9 58 16 109/60 97 Room Air 15:32 (76) 10/29/18 2.0 11:00 Intake and Output 10/29/18 10/29/18 10/30/18 1515:00 23:00 07:00 IntakeIntake Total 1230 ml 1520 ml 200 ml OutputOutput Total 60 ml 4000 ml BalanceBalance 1170 ml -2480 ml 200 ml Results Result Diagram: 10/29/18 0421 10/29/18 0421 Results 24hrs Laboratory Tests Test 10/30/18 03:00 Stool Occult Blood NEGATIVE Medications Medication Current Medications Dextrose/Sodium Chloride 1,000 ml @ 75 mls/hr [id number] IV Last administered on 10/30/18at 07:58; Admin Dose 75 MLS/HR; Start 10/28/18 at 11:08 Ondansetron HCl (Zofran Inj) 4 mg Q6H PRN IV NAUSEA/VOMITING Last administered on 10/29/18at 23:35; Admin Dose 4 MG; Start 10/28/18 at 11:30 Acetaminophen (Tylenol Tab) 650 mg Q6H PRN PO .PAIN 1-3 OR TEMP; Start 10/28/18 at 11:30 Docusate Sodium (Colace) 100 mg Q12H PO Last administered on 10/30/18at 00:29; Admin Dose 100 MG; Start 10/28/18 at 11:30 Zolpidem Tartrate (Ambien) 5 mg QHS PRN PO .INSOMNIA; Start 10/28/18 at 11:30 Furosemide (Lasix) 20 mg DAILY PO Last administered on 10/30/18at 08:58; Admin Dose 20 MG; Start 10/29/18 at 09:00 Pantoprazole (Protonix Tab) 40 mg BID@0600,1800 PO Last administered on 10/30/18at 05:52; Admin Dose 40 MG; Start 10/28/18 at 18:00 Levofloxacin/ Dextrose 150 ml @ 100 mls/hr Q24H IVPB Last administered on 10/30/18at 12:53; Admin Dose 100 MLS/HR; Start 10/28/18 at 13:00 Clindamycin HCl/ Dextrose 50 ml @ 50 mls/hr Q8 IVPB Last administered on 10/30/18at 14:22; Admin Dose 50 MLS/HR; Start 10/28/18 at 17:30 Collagenase (Santyl) 1 applic DAILY TOP Last administered on 10/30/18at 08:57; Admin Dose 1 APPLIC; Start 10/28/18 at 21:00 Patient Own Medication 1 ea Q24H IT ; Start 10/28/18 at 21:30 Oxycodone/ Acetaminophen (Percocet (5/ 325)) 1 tab Q4H PRN PO PAIN LEVEL 4-6; Start 10/29/18 at 09:00 Oxycodone/ Acetaminophen (Percocet (5/ 325)) 2 tab Q4H PRN PO PAIN LEVEL 6-10; Start 10/29/18 at 09:00 Enoxaparin Sodium (Lovenox) 40 mg DAILY SC ; Start 10/31/18 at 09:00 STEPHANIE CROW NP Oct 30, 2018 15:48
--- NOTE | 2018-10-30 16:05 | PAC ---
Date/Time of Note Date/Time of Note DATE: 10/30/18 TIME: 16:05 Post-Anesthesia Notes Post-Anesthesia Note Last documented vital signs Vital Signs Date Temp Pulse Resp B/P (MAP) Pulse Ox O2 O2 Flow FiO2 Time Delivery Rate 10/30/18 97.9 58 16 109/60 97 Room Air 16:08 (76) 10/29/18 2.0 11:00 Activity: WNL Respiratory function: WNL Cardiovascular function: WNL Mental status: Baseline Pain reasonably controlled: Yes Hydration appropriate: Yes Nausea/Vomiting absent: Yes GABRIEL DUQUE MD Oct 30, 2018 16:05
[2018-10-30 16:20] VITALS: BP 111/44; PULSE 64; RESP 23
[2018-10-30] MEDS ORDERED: hydrALAzine 20 MG INJ IV PRN (16:30)
[2018-10-30] MEDS ORDERED: FENTAnyl 50 MCG/ML VIAL IV PRN ×2 (16:30)
[2018-10-30] MEDS ORDERED: EPHEDrine SULFATE 50 MG/5 ML SYG IV PRN (16:30)
[2018-10-30] MEDS ORDERED: ONDANSETRON 4 MG INJ IV PRN (16:30)
[2018-10-30] MEDS ORDERED: LABETALOL HCL 20MG INJ IV PRN (16:30)
[2018-10-30] MEDS ORDERED: HYDROmorphONE 1 MG/5 ML IV SYRINGE IV PRN ×2 (16:30)
[2018-10-30] MEDS ORDERED: METOCLOPRAMIDE 10 MG INJ IV PRN (16:30)
[2018-10-30] MEDS: DAPTOMYCIN 410 MG in SOD CHLORIDE 0.9% 100 ML IVPB SCH (17:38)
[2018-10-30] MEDS: LACTULOSE 30ML CUP PO SCH ×4 (17:40→22:06)
[2018-10-30] MEDS: BACLOFEN IT SCH (20:04)
[2018-10-30] MEDS: LUBIPROSTONE 24 MCG CAP PO SCH (21:19)
[2018-10-30 21:31] VITALS: BP 107/57; PULSE 52; RESP 18
[2018-10-31] MEDS: LACTULOSE 30ML CUP PO SCH ×2 (01:47→03:27)
[2018-10-31 02:48] VITALS: BP 102/68; PULSE 68; RESP 16
[2018-10-31] MEDS: PANTOPRAZOLE (EC) 40 MG TAB PO SCH ×2 (05:41→17:19)
[2018-10-31 07:35] VITALS: BP 95/54; PULSE 63; RESP 16
[2018-10-31] MEDS: FUROSEMIDE 20 MG TAB PO SCH (08:24)
[2018-10-31] MEDS: LUBIPROSTONE 24 MCG CAP PO SCH ×2 (08:24→20:33)
[2018-10-31] MEDS: COLLAGENASE 5 GM (UD JAR) TOP SCH (08:25)
[2018-10-31] MEDS: BALSAM PERU/CASTOR OIL 60 GM TUBE TOP SCH ×4 (08:25→20:33)
[2018-10-31] MEDS: ENOXAPARIN 40 MG/0.4 ML SYG SC SCH (08:29)
--- NOTE | 2018-10-31 08:33 | CONS ---
Consult Date/Type/Reason Admit Date/Time Oct 28, 2018 at 10:55 Initial Consult Date 10/28/18 Type of Consultation: cv Date/Time of Note DATE: 10/31/18 TIME: 08:31 Subjective Interventional cardiology follow-up progress note Subjective: Discussed with the staff. Patient with no chest pain or pressure. Denies any active bleeding to me. she denies any shortness of breath to me. Events noted: Status post debridement 10/29/2018 10/30/18: EGD ( and incomplete colo) Objective: General: no acute distress HEENT: NC/AT. pupils are equal. round. NECK: NO JVD. no stridor. CV: RRR. systolic murmur; no gallop or rubs. PULM: no wheezing or rhonchi. GI: SOFT, NT, ND, no rebound or guarding Extremity: Right upper extremity is contracted Left hand finger edematous is in dressing neuro: awake and alert, OX2. Psych: calm and pleasant rectal: deferred Echocardiogram was personally reviewed which shows: Normal left ventricular systolic function. Normal left ventricular cavity size. Left ventricular wall thickness upper limits of normal. Ejection fraction is visually estimated at 65 %. Tissue Doppler/Mitral Doppler indices are within normal limits. Mild mitral leaflet calcification. Mild mitral annular calcification. Trace mitral regurgitation. No significant aortic stenosis or insufficiency. Aortic cusps appear mildly calcified. Normal appearance of the tricuspid valve. Estimated peak PA systolic pressure 34 mmHg. There is mild tricuspid regurgitation. EKG was personally reviewed which shows: Normal sinus rhythm. Low voltage. Cannot rule anterior infarct Objective Vitals Vital Signs Date Temp Pulse Resp B/P (MAP) Pulse Ox O2 O2 Flow FiO2 Time Delivery Rate 10/31/18 98.1 63 16 95/54 (68) 92 Room Air 07:35 10/30/18 6 15:45 Intake and Output 10/30/18 10/30/18 10/31/18 1515:00 23:00 07:00 IntakeIntake Total 935 ml 750 ml 700 ml OutputOutput Total 300 ml 500 ml 300 ml BalanceBalance 635 ml 250 ml 400 ml Results/Medications Result Diagram: 10/29/1842010/29/18420 Home Meds Reported Medications Metronidazole* (Flagyl*) 500 Mg Tablet, 500 MG PO BID, TAB 10/28/18 Sulfamethoxazole/Trimethoprim* (Bactrim Ds* Tablet) 1 Each Tablet, 2 TAB PO BID, TAB 10/28/18 Clindamycin Hcl* (Clindamycin Hcl*) 300 Mg Capsule, 300 MG PO Q8, CAP 10/28/18 Furosemide* (Furosemide*) 20 Mg Tablet, 20 MG PO DAILY, #60 TAB 10/28/18 Omeprazole* (Omeprazole*) 20 Mg Capsule.dr, 20 MG PO BID, #60 CAP 10/28/18 Baclofen* (Baclofen*) 10 Mg Tablet, 960 MCG INTRACATH DAILY, TAB 10/28/18 Medications Current Medications Ondansetron HCl (Zofran Inj) 4 mg Q6H PRN IV NAUSEA/VOMITING Last administered on 10/29/18at 23:35; Admin Dose 4 MG; Start 10/28/18 at 11:30 Acetaminophen (Tylenol Tab) 650 mg Q6H PRN PO .PAIN 1-3 OR TEMP; Start 10/28/18 at 11:30 Docusate Sodium (Colace) 100 mg Q12H PO Last administered on 10/30/18at 22:40; Admin Dose 100 MG; Start 10/28/18 at 11:30 Zolpidem Tartrate (Ambien) 5 mg QHS PRN PO .INSOMNIA; Start 10/28/18 at 11:30 Furosemide (Lasix) 20 mg DAILY PO Last administered on 10/31/18at 08:24; Admin Dose 20 MG; Start 10/29/18 at 09:00 Pantoprazole (Protonix Tab) 40 mg BID@0600,1800 PO Last administered on 10/31/18at 05:41; Admin Dose 40 MG; Start 10/28/18 at 18:00 Levofloxacin/ Dextrose 150 ml @ 100 mls/hr Q24H IVPB Last administered on 10/30/18at 12:53; Admin Dose 100 MLS/HR; Start 10/28/18 at 13:00 Collagenase (Santyl) 1 applic DAILY TOP Last administered on 10/31/18at 08:25; Admin Dose 1 APPLIC; Start 10/28/18 at 21:00 Patient Own Medication 1 ea Q24H IT ; Start 10/28/18 at 21:30 Oxycodone/ Acetaminophen (Percocet (5/ 325)) 1 tab Q4H PRN PO PAIN LEVEL 4-6; Start 10/29/18 at 09:00 Oxycodone/ Acetaminophen (Percocet (5/ 325)) 2 tab Q4H PRN PO PAIN LEVEL 6-10; Start 10/29/18 at 09:00 Enoxaparin Sodium (Lovenox) 40 mg DAILY SC Last administered on 10/31/18at 08:29; Admin Dose 40 MG; Start 10/31/18 at 09:00 Daptomycin 410 mg/ Sodium Chloride 100 ml @ 200 mls/hr Q24H IVPB Last administered on 10/30/18at 17:38; Admin Dose 200 MLS/HR; Start 10/30/18 at 17:00 Lubiprostone (Amitiza) 24 mcg BID PO Last administered on 10/31/18at 08:24; Admi n Dose 24 MCG; Start 10/30/18 at 21:00 Assessment/Plan Hospital Course (Demo Recall) 1. Cardiovascular preop evaluation 2. Left finger infection/possible osteomyelitis: Status post I&D 3. Severe anemia 4. History of anoxic brain injury and encephalopathy 5. Abnormal EKG but normal ejection fraction and echo 6. History of Haque's esophagus/vagina status post endoscopy Recommendations: Postop care/wound care as per ortho Transfusions as needed PPIs follow up with GI consultation recommendations. . Thank you for his referral. We will continue to follow along with you TRACY CHAUDHARY MD [facility] TRACY CHAUDHARY MD Oct 31, 2018 08:33
[2018-10-31] MEDS: DOCUSATE SODIUM 100 MG CAP PO SCH ×2 (11:36→23:01)
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
[2018-10-31] MEDS ORDERED: BISACODYL (EC) 5 MG TAB PO ONE (13:30)
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
[2018-10-31] MEDS: LEVOFLOXACIN 750MG/D5W (PMX) 150 ML IVPB SCH (13:36)
[2018-10-31 14:30] VITALS: BP 89/54; PULSE 80; RESP 18
[2018-10-31] MEDS ORDERED: MAGNESIUM SULFATE 2 GM/50 ML 50 ML IVPB ONE (14:30)
[2018-10-31] MEDS: SOD FERRIC GLUC COMPLX 125 MG in SOD CHLORIDE 0.9% 100 ML IVPB SCH (15:01)
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
--- NOTE | 2018-10-31 16:34 | CONS ---
Assessment/Plan Assessment/Plan Hospital Course (Demo Recall) Patient is awake, looks comfortable, no fevers Wound cultures + Corynebact JK and Enterococcus Antimicrobials: Daptomycin Levaquin Allergy: Lisa Mahoneyo Physical examination: Well-developed ill-appearing middle-aged woman who is awake in no distress. Head atraumatic normocephalic neck is supple chest rise symmetrical breath sounds diminished bases. Heart: S1-S2. Abdomen soft bowel sounds present. Extremities: Left hand dressing intact. Patient has multiple pressure sores on her lower extremities Assessment: 1. Infected left long finger/osteomyelitis, status post debridement 2. Multiple pressure sores lower extremities 3. History of [place] 4. History of CVA Plan: Patient is stable, dc Levaquin, continue Daptomycin for for 6 weeks Consultation Date/Type/Reason Admit Date/Time Oct 28, 2018 at 10:55 Initial Consult Date 10/28/18 Type of Consult id Date/Time of Note DATE: 10/31/18 TIME: 16:33 Exam/Review of Systems Exam Vitals Vital Signs Date Temp Pulse Resp B/P (MAP) Pulse Ox O2 O2 Flow FiO2 Time Delivery Rate 10/31/18 97.9 80 18 89/54 (66) 98 Room Air 14:30 10/30/18 6 15:45 Intake and Output 10/30/18 10/30/18 10/31/18 1515:00 23:00 07:00 IntakeIntake Total 935 ml 750 ml 700 ml OutputOutput Total 300 ml 500 ml 300 ml BalanceBalance 635 ml 250 ml 400 ml Results Result Diagram: 10/29/18 0421 10/29/18 0421 Results 24hrs Laboratory Tests Test 10/31/18 09:17 Lab Scanned Report BLOOD TRANSFUSION Medications Medication Current Medications Ondansetron HCl (Zofran Inj) 4 mg Q6H PRN IV NAUSEA/VOMITING Last administered on 10/29/18at 23:35; Admin Dose 4 MG; Start 10/28/18 at 11:30 Acetaminophen (Tylenol Tab) 650 mg Q6H PRN PO .PAIN 1-3 OR TEMP Last administered on 10/31/18at 11:24; Admin Dose 650 MG; Start 10/28/18 at 11:30 Docusate Sodium (Colace) 100 mg Q12H PO Last administered on 10/31/18at 11:36; Admin Dose 100 MG; Start 10/28/18 at 11:30 Zolpidem Tartrate (Ambien) 5 mg QHS PRN PO .INSOMNIA; Start 10/28/18 at 11:30 Furosemide (Lasix) 20 mg DAILY PO Last administered on 10/31/18 08:24; Admin Dose 20 MG; Start 10/29/18 at 09:00 Pantoprazole (Protonix Tab) 40 mg BID@0600,1800 PO Last administered on 10/31/18 05:41; Admin Dose 40 MG; Start 10/28/18 at 18:00 Levofloxacin/ Dextrose 150 ml @ 100 mls/hr Q24H IVPB Last administered on 10/31/18 13:36; Admin Dose 100 MLS/HR; Start 10/28/18 at 13:00 Collagenase (Santyl) 1 applic DAILY TOP Last administered on 10/31/18 08:25; Admin Dose 1 APPLIC; Start 10/28/18 at 21:00 Patient Own Medication 1 ea Q24H IT ; Start 10/28/18 at 21:30 Oxycodone/ Acetaminophen (Percocet (5/ 325)) 1 tab Q4H PRN PO PAIN LEVEL 4-6; Start 10/29/18 at 09:00 Oxycodone/ Acetaminophen (Percocet (5/ 325)) 2 tab Q4H PRN PO PAIN LEVEL 6-10; Start 10/29/18 at 09:00 Enoxaparin Sodium (Lovenox) 40 mg DAILY SC Last administered on 10/31/18 08:29; Admin Dose 40 MG; Start 10/31/18 at 09:00 Daptomycin 410 mg/ Sodium Chloride 100 ml @ 200 mls/hr Q24H IVPB Last administered on 10/30/18at 17:38; Admin Dose 200 MLS/HR; Start 10/30/18 at 17:00 Lubiprostone (Amitiza) 24 mcg BID PO Last administered on 10/31/18 08:24; Admin Dose 24 MCG; Start 10/30/18 at 21:00 Ferric Sodium Gluconate Complex 125 mg/Sodium Chloride 100 ml @ 100 mls/hr DAILY@1300 IVPB Last administered on 10/31/18at 15:01; Admin Dose 100 MLS/HR; Start 10/31/18 at 14:30; Stop 11/02/18 at 13:59 IV Flush (NS 10 ml) 10 ml PRN PRN IV IV PROTOCOL; Start 10/31/18 at 13:30 Magnesium Citrate (Citroma) 300 ml ONCE ONCE PO ; Start 10/31/18 at 17:30; Stop 10/31/18 at 17:31 Polyethylene Glycol (Miralax) 119 gm ONCE ONCE PO ; Start 10/31/18 at 18:30; Stop 10/31/18 at 18:31 Polyethylene Glycol (Miralax) 119 gm 2ND DOSE (GI PREP) ONCE PO ; Start 11/01/18 at 06:00; Stop 11/01/18 at 06:01 Bisacodyl (Dulcolax) 10 mg 2ND DOSE (GI PREP) ONCE PO ; Start 11/01/18 at 08:00; Stop 11/01/18 at 08:01 STEPHANIE CROW NP Oct 31, 2018 16:34
--- NOTE | 2018-10-31 17:26 | PREAC ---
Date/Time of Note Date/Time of Note DATE: 10/31/18 TIME: 17:25 Anesthesia Eval and Record Evaluation Time Pre-Procedure Interview DATE: 10/31/18 TIME: 17:25 Age 53 Sex female NPO: 8 hrs Preoperative diagnosis anemia Planned procedure colonoscopy Past Medical History Past Medical History: Includes Cardio: Dyslipidemia Pulm: Sleep Apnea Neuro: Other (Right Hermiparesis) Heme: Anemia Surgery & Anesthesia Issues No known issue Meds Anticoagulation: No Beta Ava within 24 hr: No Reason Beta Ava not given: Pt. not on B-Ava Reported Medications Metronidazole* (Flagyl*) 500 Mg Tablet, 500 MG PO BID, TAB 10/28/18 Sulfamethoxazole/Trimethoprim* (Bactrim Ds* Tablet) 1 Each Tablet, 2 TAB PO BID, TAB 10/28/18 Clindamycin Hcl* (Clindamycin Hcl*) 300 Mg Capsule, 300 MG PO Q8, CAP 10/28/18 Furosemide* (Furosemide*) 20 Mg Tablet, 20 MG PO DAILY, #60 TAB 10/28/18 Omeprazole* (Omeprazole*) 20 Mg Capsule.dr, 20 MG PO BID, #60 CAP 10/28/18 Baclofen* (Baclofen*) 10 Mg Tablet, 960 MCG INTRACATH DAILY, TAB 10/28/18 Current Medications Ondansetron HCl (Zofran Inj) 4 mg Q6H PRN IV NAUSEA/VOMITING Last administered on 10/29/18at 23:35; Admin Dose 4 MG; Start 10/28/18 at 11:30 Acetaminophen (Tylenol Tab) 650 mg Q6H PRN PO .PAIN 1-3 OR TEMP Last administered on 10/31/18at 11:24; Admin Dose 650 MG; Start 10/28/18 at 11:30 Docusate Sodium (Colace) 100 mg Q12H PO Last administered on 10/31/18at 11:36; Admin Dose 100 MG; Start 10/28/18 at 11:30 Zolpidem Tartrate (Ambien) 5 mg QHS PRN PO .INSOMNIA; Start 10/28/18 at 11:30 Furosemide (Lasix) 20 mg DAILY PO Last administered on 10/31/18at 08:24; Admin Dose 20 MG; Start 10/29/18 at 09:00 Pantoprazole (Protonix Tab) 40 mg BID@0600,1800 PO Last administered on 10/31/18at 17:19; Admin Dose 40 MG; Start 10/28/18 at 18:00 Collagenase (Santyl) 1 applic DAILY TOP Last administered on 10/31/18at 08:25; Admin Dose 1 APPLIC; Start 10/28/18 at 21:00 Patient Own Medication 1 ea Q24H IT ; Start 10/28/18 at 21:30 Oxycodone/ Acetaminophen (Percocet (5/ 325)) 1 tab Q4H PRN PO PAIN LEVEL 4-6; Start 10/29/18 at 09:00 Oxycodone/ Acetaminophen (Percocet (5/ 325)) 2 tab Q4H PRN PO PAIN LEVEL 6-10; Start 10/29/18 at 09:00 Enoxaparin Sodium (Lovenox) 40 mg DAILY SC Last administered on 10/31/18at 0 8:29; Admin Dose 40 MG; Start 10/31/18 at 09:00 Daptomycin 410 mg/ Sodium Chloride 100 ml @ 200 mls/hr Q24H IVPB Last administered on 10/30/18at 17:38; Admin Dose 200 MLS/HR; Start 10/30/18 at 17:00 Lubiprostone (Amitiza) 24 mcg BID PO Last administered on 10/31/18at 08:24; Admin Dose 24 MCG; Start 10/30/18 at 21:00 Ferric Sodium Gluconate Complex 125 mg/Sodium Chloride 100 ml @ 100 mls/hr DAILY@1300 IVPB Last administered on 10/31/18at 15:01; Admin Dose 100 MLS/HR; Start 10/31/18 at 14:30; Stop 11/02/18 at 13:59 IV Flush (NS 10 ml) 10 ml PRN PRN IV IV PROTOCOL; Start 10/31/18 at 13:30 Magnesium Citrate (Citroma) 300 ml ONCE ONCE PO Last administered on 10/31/18at 17:20; Admin Dose 300 ML; Start 10/31/18 at 17:30; Stop 10/31/18 at 17:31 Polyethylene Glycol (Miralax) 119 gm ONCE ONCE PO ; Start 10/31/18 at 18:30; Stop 10/31/18 at 18:31 Polyethylene Glycol (Miralax) 119 gm 2ND DOSE (GI PREP) ONCE PO ; Start 11/01/18 at 06:00; Stop 11/01/18 at 06:01 Bisacodyl (Dulcolax) 10 mg 2ND DOSE (GI PREP) ONCE PO ; Start 11/01/18 at 08:00; Stop 11/01/18 at 08:01 Sodium Hypochlorite (Dakin'S (Dilute )) 1 applic DAILY IRR ; Start 11/01/18 at 09:00 Meds reviewed: Yes Allergies Coded Allergies: piperacillin (Verified Allergy, Unknown, 10/28/18) vancomycin (Verified Allergy, Unknown, 10/28/18) Allergies Reviewed: Yes Labs/Studies Labs Reviewed: Reviewed by anesthesiologist Result Diagram: 10/29/1842010/29/18420 test: N/A Pre-procedure Exam Last vitals Vital Signs Date Temp Pulse Resp B/P (MAP) Pulse Ox O2 O2 Flow FiO2 Time Delivery Rate 10/31/18 97.9 80 18 89/54 (66) 98 Room Air 14:30 10/30/18 6 15:45 Airway: Adequate mouth opening Mallampati: Mallampati II Teeth: Normal Lung: Normal Heart: Normal ASA Physical Status ASA physical status: 2 Emergency: None Planned Anesthetic General/MAC: MAC Pre-operative Attestations Prior to commencing anesthesia and surgery, the patient was re-evaluated, there was verification of: *The patient's identity *The results of appropriate recent lab work and preoperative vital signs *The above evaluation not changing prior to induction *Anesthetic plan, risk benefits, alternative and complications discussed with patient/family; questions answered; patient/family understands, accepts and wishes to proceed. RICK ESTEVEZ Oct 31, 2018 17:26
[2018-10-31] MEDS ORDERED: MAGNESIUM CITRATE 300 ML BTL PO ONE (17:30)
[2018-10-31] MEDS: DAPTOMYCIN 410 MG in SOD CHLORIDE 0.9% 100 ML IVPB SCH (18:19)
[2018-10-31] MEDS ORDERED: POLYETHYLENE GLYCOL 3350 119 GM POWDER PO ONE (18:30)
[2018-10-31 20:15] VITALS: BP 95/51; PULSE 71; RESP 18
[2018-10-31] MEDS: BACLOFEN IT SCH (20:34)
[2018-11-01] VITALS (14 sets, daily range): BP systolic 99–128; BP diastolic 51–74; PULSE 64–86; RESP 12–20
[2018-11-01] MEDS ORDERED: POLYETHYLENE GLYCOL 3350 119 GM POWDER PO ONE (06:00)
[2018-11-01] MEDS: PANTOPRAZOLE (EC) 40 MG TAB PO SCH ×2 (06:18→18:23)
[2018-11-01] MEDS ORDERED: POTASSIUM CHLORIDE (SR) 20 MEQ TAB PO SCH (07:00)
[2018-11-01] MEDS ORDERED: POTASSIUM CHLORIDE (SR) 20 MEQ TAB PO STA (07:20)
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
[2018-11-01] MEDS ORDERED: BISACODYL (EC) 5 MG TAB PO ONE (08:00)
[2018-11-01] MEDS: ENOXAPARIN 40 MG/0.4 ML SYG SC SCH (08:04)
[2018-11-01] MEDS: BALSAM PERU/CASTOR OIL 60 GM TUBE TOP SCH ×4 (08:04→21:02)
[2018-11-01] MEDS: COLLAGENASE 5 GM (UD JAR) TOP SCH (08:04)
[2018-11-01] MEDS: FUROSEMIDE 20 MG TAB PO SCH (08:06)
[2018-11-01] MEDS: LUBIPROSTONE 24 MCG CAP PO SCH ×2 (08:07→21:00)
[2018-11-01] MEDS: SODIUM HYPOCHLORITE (1/40) 1 APPLIC BTL IRR SCH (08:08)
[2018-11-01] MEDS: POTASSIUM CHLORIDE 100 ML IVPB SCH ×2 (10:45→21:01)
[2018-11-01] MEDS: DOCUSATE SODIUM 100 MG CAP PO SCH ×3 (11:30→23:09)
[2018-11-01] MEDS: SOD FERRIC GLUC COMPLX 125 MG in SOD CHLORIDE 0.9% 100 ML IVPB SCH (12:37)
--- NOTE | 2018-11-01 13:35 | RADRPT ---
Vent Rate: 92 bpm RR Interval: 0 msec [place] Interval: 148 msec QRS Duration: 80 msec QT Interval: 368 msec QTC Interval: 455 msec P-R-T Sherborn: 45 - -12 - 46 degrees Normal sinus rhythm Possible Anterior infarct , age undetermined Abnormal ECG Electronically Signed By: Billy Salamanca
--- NOTE | 2018-11-01 15:30 | CONS ---
Consult Date/Type/Reason Admit Date/Time Oct 28, 2018 at 10:55 Initial Consult Date 10/28/18 Type of Consultation: cv Date/Time of Note DATE: 11/01/18 TIME: 15:29 Subjective Interventional cardiology follow-up progress note Subjective: Discussed with the staff. Patient with no chest pain or pressure. no report of any active bleeding no report of shortness of breath . Events noted: Status post debridement 10/29/2018 10/30/18: EGD ( and incomplete colo) Objective: General: no acute distress HEENT: NC/AT. pupils are equal. round. NECK: NO JVD. no stridor. CV: RRR. systolic murmur; no gallop or rubs. PULM: no wheezing or rhonchi. GI: SOFT, NT, ND, no rebound or guarding Extremity: Right upper extremity is contracted Left hand finger edematous is in dressing neuro: awake and alert, OX2. Psych: calm and pleasant rectal: deferred Echocardiogram was personally reviewed which shows: Normal left ventricular systolic function. Normal left ventricular cavity size. Left ventricular wall thickness upper limits of normal. Ejection fraction is visually estimated at 65 %. Tissue Doppler/Mitral Doppler indices are within normal limits. Mild mitral leaflet calcification. Mild mitral annular calcification. Trace mitral regurgitation. No significant aortic stenosis or insufficiency. Aortic cusps appear mildly calcified. Normal appearance of the tricuspid valve. Estimated peak PA systolic pressure 34 mmHg. There is mild tricuspid regurgitation. EKG was personally reviewed which shows: Normal sinus rhythm. Low voltage. Cannot rule anterior infarct Objective Vitals Vital Signs Date Temp Pulse Resp B/P (MAP) Pulse Ox O2 O2 Flow FiO2 Time Delivery Rate 11/01/18 98.8 72 18 106/74 96 14:00 (85) 10/31/18 Room Air 14:30 10/30/18 6 15:45 Intake and Output 10/31/18 10/31/18 11/01/18 1414:59 22:59 06:59 IntakeIntake Total 1060 ml 700 ml 1000 ml OutputOutput Total 350 ml 1000 ml BalanceBalance 1060 ml 350 ml 0 ml Results/Medications Result Diagram: 11/01/18 0550 11/01/18 0550 Results 24 hrs Laboratory Tests Test 11/01/18 05:50 White Blood Count 15.9 #H Red Blood Count 4.64 Hemoglobin 9.2 L Hematocrit 32.9 L Mean Corpuscular Volume 70.9 L Mean Corpuscular Hemoglobin 19.8 L Mean Corpuscular Hemoglobin Concent 28.0 L Red Cell Distribution Width 32.1 H Platelet Count 428 #H Mean Platelet Volume 9.1 Immature Granulocytes % 0.300 Neutrophils % 85.4 H Lymphocytes % 8.6 L Monocytes % 4.6 Eosinophils % 0.8 Basophils % 0.3 Nucleated Red Blood Cells % 0.2 H Immature Granulocytes # 0.050 H Neutrophils # 13.6 H Lymphocytes # 1.4 Monocytes # 0.7 Eosinophils # 0.1 Basophils # 0.1 Nucleated Red Blood Cells # 0.0 Sodium Level 141 Potassium Level 3.1 L Chloride Level 105 Carbon Dioxide Level 30 Anion Gap 6 Blood Urea Nitrogen 9 Creatinine 0.39 L Est Glomerular Filtrat Rate mL/min > 60 Glucose Level 75 Calcium Level 8.3 L Magnesium Level 2.0 Creatine Kinase 22 L Home Meds Reported Medications Metronidazole* (Flagyl*) 500 Mg Tablet, 500 MG PO BID, TAB 10/28/18 Sulfamethoxazole/Trimethoprim* (Bactrim Ds* Tablet) 1 Each Tablet, 2 TAB PO BID, TAB 10/28/18 Clindamycin Hcl* (Clindamycin Hcl*) 300 Mg Capsule, 300 MG PO Q8, CAP 10/28/18 Furosemide* (Furosemide*) 20 Mg Tablet, 20 MG PO DAILY, #60 TAB 10/28/18 Omeprazole* (Omeprazole*) 20 Mg Capsule.dr, 20 MG PO BID, #60 CAP 10/28/18 Baclofen* (Baclofen*) 10 Mg Tablet, 960 MCG INTRACATH DAILY, TAB 10/28/18 Medications Current Medications Ondansetron HCl (Zofran Inj) 4 mg Q6H PRN IV NAUSEA/VOMITING Last administered on 10/29/18at 23:35; Admin Dose 4 MG; Start 10/28/18 at 11:30 Acetaminophen (Tylenol Tab) 650 mg Q6H PRN PO .PAIN 1-3 OR TEMP Last administered on 10/31/18at 11:24; Admin Dose 650 MG; Start 10/28/18 at 11:30 Docusate Sodium (Colace) 100 mg Q12H PO Last administered on 10/31/18at 23:01; Admin Dose 100 MG; Start 10/28/18 at 11:30 Zolpidem Tartrate (Ambien) 5 mg QHS PRN PO .INSOMNIA; Start 10/28/18 at 11:30 Furosemide (Lasix) 20 mg DAILY PO Last administered on 11/01/18at 08:06; Admin Dose 20 MG; Start 10/29/18 at 09:00 Pantoprazole (Protonix Tab) 40 mg BID@0600,1800 PO Last administered on 11/01/18at 06:18; Admin Dose 40 MG; Start 10/28/18 at 18:00 Collagenase (Santyl) 1 applic DAILY TOP Last administered on 11/01/18at 08:04; Admin Dose 1 APPLIC; Start 10/28/18 at 21:00 Patient Own Medication 1 ea Q24H IT ; Start 10/28/18 at 21:30 Oxycodone/ Acetaminophen (Percocet (5/ 325)) 1 tab Q4H PRN PO PAIN LEVEL 4-6; Start 10/29/18 at 09:00 Oxycodone/ Acetaminophen (Percocet (5/ 325)) 2 tab Q4H PRN PO PAIN LEVEL 6-10; Start 10/29/18 at 09:00 Enoxaparin Sodium (Lovenox) 40 mg DAILY SC Last administered on 10/31/18at 08:29; Admin Dose 40 MG; Start 10/31/18 at 09:00 Daptomycin 410 mg/ Sodium Chloride 100 ml @ 200 mls/hr Q24H IVPB Last administered on 10/31/18at 18:19; Admin Dose 200 MLS/HR; Start 10/30/18 at 17:00 Lubiprostone (Amitiza) 24 mcg BID PO Last administered on 11/01/18at 08:07; Admin Dose 24 MCG; Start 10/30/18 at 21:00 Ferric Sodium Gluconate Complex 125 mg/Sodium Chloride 100 ml @ 100 mls/hr D AILY@1300 IVPB Last administered on 11/01/18at 12:37; Admin Dose 100 MLS/HR; Start 10/31/18 at 14:30; Stop 11/02/18 at 13:59 IV Flush (NS 10 ml) 10 ml PRN PRN IV IV PROTOCOL; Start 10/31/18 at 13:30 Sodium Hypochlorite (Dakin'S (Dilute 1/40)) 1 applic DAILY IRR Last administered on 11/01/18at 08:08; Admin Dose 1 APPLIC; Start 11/01/18 at 09:00 Assessment/Plan Hospital Course (Demo Recall) 1. Cardiovascular preop evaluation 2. Left finger infection/possible osteomyelitis: Status post I&D 3. Severe anemia 4. History of anoxic brain injury and encephalopathy 5. Abnormal EKG but normal ejection fraction and echo 6. History of Haque's esophagus/vagina status post endoscopy Recommendations: Postop care/wound care as per ortho Transfusions as needed PPIs follow up with GI consultation recommendations. . Thank you for his referral. We will continue to follow along with you as needed TRACY CHAUDHARY MD [facility] TRACY CHAUDHARY MD Nov 01, 2018 15:30
[2018-11-01] MEDS ORDERED: PROPOFOL 40 ML ONE (15:54)
[2018-11-01] MEDS ORDERED: LIDOCAINE 2% (SDV) 5 ML INJ ONE (15:55)
--- NOTE | 2018-11-01 15:58 | HPN ---
Date/Time of Note Date/Time of Note DATE: 11/01/18 TIME: 15:58 Interval H&P Admission Note Pt. seen H&P reviewed: No system changes SALLY GARCIA Nov 01, 2018 15:58
[2018-11-01] MEDS ORDERED: HYDROmorphONE 1 MG/5 ML IV SYRINGE IV PRN (16:00)
[2018-11-01] MEDS ORDERED: ONDANSETRON 4 MG INJ IV PRN (16:00)
--- NOTE | 2018-11-01 16:14 | PAC ---
Date/Time of Note Date/Time of Note DATE: 11/01/18 TIME: 16:14 Post-Anesthesia Notes Post-Anesthesia Note Last documented vital signs Vital Signs Date Temp Pulse Resp B/P (MAP) Pulse Ox O2 O2 Flow FiO2 Time Delivery Rate 11/01/18 Simple 10 15:43 Mask 11/01/18 98.1 12 114/57 91 15:24 (76) 11/01/18 72 14:00 Activity: WNL Respiratory function: WNL Cardiovascular function: WNL Mental status: Baseline Pain reasonably controlled: Yes Hydration appropriate: Yes Nausea/Vomiting absent: Yes Comments BP: 118/66 HR: 68 RR: 15 T: 98.1 SaO2: 99% ALAN ENRIQUEZ MD Nov 01, 2018 16:14
[2018-11-01] MEDS: DAPTOMYCIN 410 MG in SOD CHLORIDE 0.9% 100 ML IVPB SCH (17:28)
--- NOTE | 2018-11-01 19:56 | CONS ---
Assessment/Plan Assessment/Plan Hospital Course (Demo Recall) 1345 Patient is awake, looks comfortable, no fevers Wound cultures + Corynebact JK and Enterococcus Antimicrobials: Daptomycin Allergy: Lucho Mahoney Physical examination: Well-developed ill-appearing middle-aged woman who is awake in no distress. Head atraumatic normocephalic neck is supple chest rise symmetrical breath sounds diminished bases. Heart: S1-S2. Abdomen soft bowel sounds present. Extremities: Left hand dressing intact. Patient has multiple pressure sores on her lower extremities Assessment: 1. Infected left long finger/osteomyelitis, status post debridement 2. Multiple pressure sores lower extremities 3. History of NH 4. History of CVA Plan: Patient is stable, pending dc on IV Daptomycin to complete 6 weeks==> till December 13 Consultation Date/Type/Reason Admit Date/Time Oct 28, 2018 at 10:55 Initial Consult Date 10/28/18 Type of Consult id Date/Time of Note DATE: 11/01/18 TIME: 19:53 Exam/Review of Systems Exam Vitals Vital Signs Date Temp Pulse Resp B/P (MAP) Pulse Ox O2 O2 Flow FiO2 Time Delivery Rate 11/01/18 66 15 116/60 97 Nasal 2.0 17:03 (78) Cannula 11/01/18 98.2 16:25 Intake and Output 10/31/18 10/31/18 11/01/18 1515:00 23:00 07:00 IntakeIntake Total 1060 ml 700 ml 1000 ml OutputOutput Total 350 ml 1000 ml BalanceBalance 1060 ml 350 ml 0 ml Results Result Diagram: 11/01/18 0550 11/01/18 0550 Results 24hrs Laboratory Tests Test 11/01/18 05:50 White Blood Count 15.9 #H Red Blood Count 4.64 Hemoglobin 9.2 L Hematocrit 32.9 L Mean Corpuscular Volume 70.9 L Mean Corpuscular Hemoglobin 19.8 L Mean Corpuscular Hemoglobin Concent 28.0 L Red Cell Distribution Width 32.1 H Platelet Count 428 #H Mean Platelet Volume 9.1 Immature Granulocytes % 0.300 Neutrophils % 85.4 H Lymphocytes % 8.6 L Monocytes % 4.6 Eosinophils % 0.8 Basophils % 0.3 Nucleated Red Blood Cells % 0.2 H Immature Granulocytes # 0.050 H Neutrophils # 13.6 H Lymphocytes # 1.4 Monocytes # 0.7 Eosinophils # 0.1 Basophils # 0.1 Nucleated Red Blood Cells # 0.0 Sodium Level 141 Potassium Level 3.1 L Chloride Level 105 Carbon Dioxide Level 30 Anion Gap 6 Blood Urea Nitrogen 9 Creatinine 0.39 L Est Glomerular Filtrat Rate mL/min > 60 Glucose Level 75 Calcium Level 8.3 L Magnesium Level 2.0 Creatine Kinase 22 L Medications Medication Current Medications Ondansetron HCl (Zofran Inj) 4 mg Q6H PRN IV NAUSEA/VOMITING Last administered on 10/29/18 23:35; Admin Dose 4 MG; Start 10/28/18 at 11:30 Acetaminophen (Tylenol Tab) 650 mg Q6H PRN PO .PAIN 1-3 OR TEMP Last administered on 10/31/18 11:24; Admin Dose 650 MG; Start 10/28/18 at 11:30 Docusate Sodium (Colace) 100 mg Q12H PO Last administered on 10/31/18 23:01; Admin Dose 100 MG; Start 10/28/18 at 11:30 Zolpidem Tartrate (Ambien) 5 mg QHS PRN PO .INSOMNIA; Start 10/28/18 at 11:30 Furosemide (Lasix) 20 mg DAILY PO Last administered on 11/01/18 08:06; Admin Dose 20 MG; Start 10/29/18 at 09:00 Pantoprazole (Protonix Tab) 40 mg BID@0600,1800 PO Last administered on 11/01/18 18:23; Admin Dose 40 MG; Start 10/28/18 at 18:00 Collagenase (Santyl) 1 applic DAILY TOP Last administered on 11/01/18 08:04; Admin Dose 1 APPLIC; Start 10/28/18 at 21:00 Patient Own Medication 1 ea Q24H IT ; Start 10/28/18 at 21:30 Oxycodone/ Acetaminophen (Percocet (5/ 325)) 1 tab Q4H PRN PO PAIN LEVEL 4-6; Start 10/29/18 at 09:00 Oxycodone/ Acetaminophen (Percocet (5/ 325)) 2 tab Q4H PRN PO PAIN LEVEL 6-10; Start 10/29/18 at 09:00 Enoxaparin Sodium (Lovenox) 40 mg DAILY SC Last administered on 2/28/19at 08:29; Admin Dose 40 MG; Start 10/31/18 at 09:00 Daptomycin 410 mg/ Sodium Chloride 100 ml @ 200 mls/hr Q24H IVPB Last administered on 11/01/18at 17:28; Admin Dose 200 MLS/HR; Start 10/30/18 at 17:00 Lubiprostone (Amitiza) 24 mcg BID PO Last administered on 11/01/18at 08:07; Admin Dose 24 MCG; Start 10/30/18 at 21:00 Ferric Sodium Gluconate Complex 125 mg/Sodium Chloride 100 ml @ 100 mls/hr DAILY@1300 IVPB Last administered on 11/01/18at 12:37; Admin Dose 100 MLS/HR; Start 10/31/18 at 14:30; Stop 11/02/18 at 13:59 IV Flush (NS 10 ml) 10 ml PRN PRN IV IV PROTOCOL; Start 10/31/18 at 13:30 Sodium Hypochlorite (Dakin'S (Dilute 40)) 1 applic DAILY IRR Last administe red on 11/01/18at 08:08; Admin Dose 1 APPLIC; Start 11/01/18 at 09:00 Hydromorphone HCl (Dilaudid) 0.4 mg PACU PRN IV MOD PAIN 4-6; Start 11/01/18 at 16:00; Stop 11/01/18 at 20:00 Ondansetron HCl (Zofran Inj) 4 mg PACU ORDER PRN IV NAUSEA/VOMITING; Start 11/01/18 at 16:00; Stop 11/01/18 at 20:00 STEPHANIE CROW NP Nov 01, 2018 19:56
[2018-11-01] MEDS: BACLOFEN IT SCH (21:30)
[2018-11-01] MEDS ORDERED: IOHEXOL 100 ML ONE (21:42)
[2018-11-01] MEDS ORDERED: SOD CHLORIDE 0.9% 100 ML ONE (21:42)
[2018-11-02 02:16] VITALS: BP 109/58; PULSE 69; RESP 18
[2018-11-02 03:30] VITALS: BP 113/59; PULSE 66; RESP 18
[2018-11-02] MEDS: PANTOPRAZOLE (EC) 40 MG TAB PO SCH ×2 (06:01→17:26)
[2018-11-02 08:00] VITALS: BP 109/57; PULSE 67; RESP 18
[2018-11-02] MEDS: LUBIPROSTONE 24 MCG CAP PO SCH ×3 (09:00→21:23)
[2018-11-02] MEDS: FUROSEMIDE 20 MG TAB PO SCH (09:09)
[2018-11-02] MEDS: ENOXAPARIN 40 MG/0.4 ML SYG SC SCH (09:11)
[2018-11-02] MEDS: BALSAM PERU/CASTOR OIL 60 GM TUBE TOP SCH ×4 (09:11→21:23)
[2018-11-02] MEDS: COLLAGENASE 5 GM (UD JAR) TOP SCH (09:11)
[2018-11-02] MEDS: SODIUM HYPOCHLORITE (1/40) 1 APPLIC BTL IRR SCH (09:11)
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
[2018-11-02] MEDS: SOD FERRIC GLUC COMPLX 125 MG in SOD CHLORIDE 0.9% 100 ML IVPB SCH (12:46)
[2018-11-02] MEDS: DOCUSATE SODIUM 100 MG CAP PO SCH ×2 (12:46→21:23)
--- NOTE | 2018-11-02 12:50 | CONS ---
Assessment/Plan Assessment/Plan Hospital Course (Demo Recall) ID PROGRESS NOTE CURRENT ABX: DAY #DAPTOMYCIN 24H INTERVAL SUMMARY * Currently sleeping, no fevers, VSS, NAD // LUEXT hand/finger/forearm DSG C/D/I * DC PLANNING IN PROCESS -- CHART REVIEWED MICRO/OTHER * Wound cultures + Corynebact JK and Enterococcus PHYSICAL EXAMINATION: GENERAL: VSS HEENT: AT, NC, anicteric NECK: Supple, CHEST: Equal chest rise bilaterally, without dyspnea on observation HEART: Pulse RRR ABDOMEN: Soft / NT EXTREMITIES: Warm, dry / multiple pressure sores on her lower extremities / LEFT hand/finger/forearm wrapped DSG C/D/I SKIN: No rash, no diaphoresis ID ASSESSMENT 53 yo F admit with: 1. Infected left long finger/osteomyelitis, status post debridement 2. Multiple pressure sores lower extremities 3. History of NH 4. History of CVA ABX ALLERGIES: VANCO IV / ZOSYN INVASIVES: PIV CURRENT ABX: DAY # ID RECOMMENDATIONS/PLAN: 1. Continue current ABX 2. DC PLAN IN PROCESS: pending dc on IV Daptomycin to complete 6 weeks==> till December 13 Consultation Date/Type/Reason Admit Date/Time Oct 28, 2018 at 10:55 Initial Consult Date 10/29/18 Date/Time of Note DATE: 11/02/18 TIME: 12:50 Exam/Review of Systems Exam Vitals Vital Signs Date Temp Pulse Resp B/P (MAP) Pulse Ox O2 O2 Flow FiO2 Time Delivery Rate 11/02/18 98.6 67 18 109/57 94 08:00 (74) 11/01/18 Nasal 2.0 17:03 Cannula Intake and Output 11/01/18 11/01/18 11/02/18 1515:00 23:00 07:00 IntakeIntake Total 550 ml 400 ml 600 ml OutputOutput Total 300 ml BalanceBalance 550 ml 100 ml 600 ml Results Result Diagram: 11/02/1843111/02/18431 Results 24hrs Laboratory Tests Test 11/02/18 04:32 White Blood Count 10.1 # Red Blood Count 4.67 Hemoglobin 9.3 L Hematocrit 33.5 L Mean Corpuscular Volume 71.7 L Mean Corpuscular Hemoglobin 19.9 L Mean Corpuscular Hemoglobin Concent 27.8 L Red Cell Distribution Width 32.4 H Platelet Count 462 H Mean Platelet Volume 9.5 Immature Granulocytes % 0.300 Neutrophils % 76.6 Lymphocytes % 13.4 L Monocytes % 6.8 Eosinophils % 2.4 Basophils % 0.5 Nucleated Red Blood Cells % 0.0 Immature Granulocytes # 0.030 Neutrophils # 7.7 H Lymphocytes # 1.4 Monocytes # 0.7 Eosinophils # 0.2 Basophils # 0.1 Nucleated Red Blood Cells # 0.0 Sodium Level 140 Potassium Level 3.8 Chloride Level 108 Carbon Dioxide Level 27 Anion Gap 5 Blood Urea Nitrogen 8 Creatinine 0.41 L Est Glomerular Filtrat Rate mL/min > 60 Glucose Level 69 L Calcium Level 8.6 Medications Medication Current Medications Ondansetron HCl (Zofran Inj) 4 mg Q6H PRN IV NAUSEA/VOMITING Last administered on 10/29/18 23:35; Admin Dose 4 MG; Start 10/28/18 at 11:30 Acetaminophen (Tylenol Tab) 650 mg Q6H PRN PO .PAIN 1-3 OR TEMP Last administered on 10/31/18 11:24; Admin Dose 650 MG; Start 10/28/18 at 11:30 Docusate Sodium (Colace) 100 mg Q12H PO Last administered on 11/02/18 12:46; Admin Dose 100 MG; Start 10/28/18 at 11:30 Zolpidem Tartrate (Ambien) 5 mg QHS PRN PO .INSOMNIA; Start 10/28/18 at 11:30 Furosemide (Lasix) 20 mg DAILY PO Last administered on 11/02/18 09:09; Admin Dose 20 MG; Start 10/29/18 at 09:00 Pantoprazole (Protonix Tab) 40 mg BID@0600,1800 PO Last administered on 11/02/18 06:01; Admin Dose 40 MG; Start 10/28/18 at 18:00 Collagenase (Santyl) 1 applic DAILY TOP Last administered on 11/02/18 09:11; Admin Dose 1 APPLIC; Start 10/28/18 at 21:00 Patient Own Medication 1 ea Q24H IT ; Start 10/28/18 at 21:30 Oxycodone/ Acetaminophen (Percocet (5/ 325)) 1 tab Q4H PRN PO PAIN LEVEL 4-6; Start 10/29/18 at 09:00 Oxycodone/ Acetaminophen (Percocet (5/ 325)) 2 tab Q4H PRN PO PAIN LEVEL 6-10; Start 10/29/18 at 09:00 Enoxaparin Sodium (Lovenox) 40 mg DAILY SC Last administered on 11/02/18at 09:11; Admin Dose 40 MG; Start 10/31/18 at 09:00 Daptomycin 410 mg/ Sodium Chloride 100 ml @ 200 mls/hr Q24H IVPB Last administered on 11/01/18at 17:28; Admin Dose 200 MLS/HR; Start 10/30/18 at 17:00 Lubiprostone (Amitiza) 24 mcg BID PO Last administered on 11/01/18at 21:00; Admin Dose 24 MCG; Start 10/30/18 at 21:00 Ferric Sodium Gluconate Complex 125 mg/Sodium Chloride 100 ml @ 100 mls/hr DAILY@1300 IVPB Last administered on 11/02/18at 12:46; Admin Dose 100 MLS/HR; Start 10/31/18 at 14:30; Stop 11/02/18 at 13:59 IV Flush (NS 10 ml) 10 ml PRN PRN IV IV PROTOCOL; Start 10/31/18 at 13:30 Sodium Hypochlorite (Dakin'S (Dilute 140)) 1 applic DAILY IRR Last administered on 11/02/18 09:11; Admin Dose 1 APPLIC; Start 11/01/18 at 09:00 REG MTZ NP Nov 02, 2018 12:50
[2018-11-02 14:00] VITALS: BP 111/53; PULSE 74; RESP 18
--- NOTE | 2018-11-02 16:02 | PN ---
Date/Time of Note Date/Time of Note DATE: 11/02/18 TIME: 15:54 Assessment/Plan VTE Prophylaxis Risk score (from [facility] [place]0 risk: 8 SCD applied (from [facility]): No SCD contraindicated: low risk/ambulating, other Pharmacological prophylaxis: other Pharm contraindication: other (note written) Lines/Catheters [facility]ter Type (from [facility]): Peripheral IV Urinary Cath still in place: Yes Reason Cath still needed: skin wounds contaminated by urine Assessment/Plan Assessment/Plan admit antibiotics infectious disease consutl note written Result Diagram: 11/02/18 0432 11/02/18 0432 Results 24hrs Laboratory Tests Test 11/02/18 04:32 White Blood Count 10.1 # Red Blood Count 4.67 Hemoglobin 9.3 L Hematocrit 33.5 L Mean Corpuscular Volume 71.7 L Mean Corpuscular Hemoglobin 19.9 L Mean Corpuscular Hemoglobin Concent 27.8 L Red Cell Distribution Width 32.4 H Platelet Count 462 H Mean Platelet Volume 9.5 Immature Granulocytes % 0.300 Neutrophils % 76.6 Lymphocytes % 13.4 L Monocytes % 6.8 Eosinophils % 2.4 Basophils % 0.5 Nucleated Red Blood Cells % 0.0 Immature Granulocytes # 0.030 Neutrophils # 7.7 H Lymphocytes # 1.4 Monocytes # 0.7 Eosinophils # 0.2 Basophils # 0.1 Nucleated Red Blood Cells # 0.0 Sodium Level 140 Potassium Level 3.8 Chloride Level 108 Carbon Dioxide Level 27 Anion Gap 5 Blood Urea Nitrogen 8 Creatinine 0.41 L Est Glomerular Filtrat Rate mL/min > 60 Glucose Level 69 L Calcium Level 8.6 Subjective 24 Hr Interval Summary Free Text/Dictation progress note 11/02/18 Left long finger dressing changed. Appearance of the finger remarkably improved; much less swelling . no drainage little redness clearly infection treatment is working plan daily dressing changes send to Occupational therapy / or physical therapy and have hand placed in whirlpool for 1/2 hour . then a fresh dressing Ty Bailey Subjective hx not possible: other Exam/Review of Systems Exam Vitals Vital Signs Date Temp Pulse Resp B/P (MAP) Pulse Ox O2 O2 Flow FiO2 Time Delivery Rate 11/02/18 98.6 67 18 109/57 94 08:00 (74) 11/01/18 Nasal 2.0 17:03 Cannula Intake and Output 11/01/18 11/01/18 11/02/18 1515:00 23:00 07:00 IntakeIntake Total 550 ml 400 ml 600 ml OutputOutput Total 300 ml BalanceBalance 550 ml 100 ml 600 ml Results Results 24hrs Laboratory Tests Test 11/02/18 04:32 White Blood Count 10.1 # Red Blood Count 4.67 Hemoglobin 9.3 L Hematocrit 33.5 L Mean Corpuscular Volume 71.7 L Mean Corpuscular Hemoglobin 19.9 L Mean Corpuscular Hemoglobin Concent 27.8 L Red Cell Distribution Width 32.4 H Platelet Count 462 H Mean Platelet Volume 9.5 Immature Granulocytes % 0.300 Neutrophils % 76.6 Lymphocytes % 13.4 L Monocytes % 6.8 Eosinophils % 2.4 Basophils % 0.5 Nucleated Red Blood Cells % 0.0 Immature Granulocytes # 0.030 Neutrophils # 7.7 H Lymphocytes # 1.4 Monocytes # 0.7 Eosinophils # 0.2 Basophils # 0.1 Nucleated Red Blood Cells # 0.0 Sodium Level 140 Potassium Level 3.8 Chloride Level 108 Carbon Dioxide Level 27 Anion Gap 5 Blood Urea Nitrogen 8 Creatinine 0.41 L Est Glomerular Filtrat Rate mL/min > 60 Glucose Level 69 L Calcium Level 8.6 Medications Medication Current Medications Ondansetron HCl (Zofran Inj) 4 mg Q6H PRN IV NAUSEA/VOMITING Last administered on 10/29/18 23:35; Admin Dose 4 MG; Start 10/28/18 at 11:30 Acetaminophen (Tylenol Tab) 650 mg Q6H PRN PO .PAIN 1-3 OR TEMP Last administered on 10/31/18 11:24; Admin Dose 650 MG; Start 10/28/18 at 11:30 Docusate Sodium (Colace) 100 mg Q12H PO Last administered on 11/02/18at 12:46; Admin Dose 100 MG; Start 10/28/18 at 11:30 Zolpidem Tartrate (Ambien) 5 mg QHS PRN PO .INSOMNIA; Start 10/28/18 at 11:30 Furosemide (Lasix) 20 mg DAILY PO Last administered on 11/02/18 09:09; Admin Dose 20 MG; Start 10/29/18 at 09:00 Pantoprazole (Protonix Tab) 40 mg BID@0600,1800 PO Last administered on 11/02/18 06:01; Admin Dose 40 MG; Start 10/28/18 at 18:00 Collagenase (Santyl) 1 applic DAILY TOP Last administered on 11/02/18 09:11; Admin Dose 1 APPLIC; Start 10/28/18 at 21:00 Patient Own Medication 1 ea Q24H IT ; Start 10/28/18 at 21:30 Oxycodone/ Acetaminophen (Percocet (5/ 325)) 1 tab Q4H PRN PO PAIN LEVEL 4-6; Start 10/29/18 at 09:00 Oxycodone/ Acetaminophen (Percocet (5/ 325)) 2 tab Q4H PRN PO PAIN LEVEL 6-10; Start 10/29/18 at 09:00 Enoxaparin Sodium (Lovenox) 40 mg DAILY SC Last administered on 11/02/18 09:11; Admin Dose 40 MG; Start 10/31/18 at 09:00 Daptomycin 410 mg/ Sodium Chloride 100 ml @ 200 mls/hr Q24H IVPB Last admi nistered on 11/01/18 17:28; Admin Dose 200 MLS/HR; Start 10/30/18 at 17:00 Lubiprostone (Amitiza) 24 mcg BID PO Last administered on 11/01/18 21:00; Admin Dose 24 MCG; Start 10/30/18 at 21:00 Ferric Sodium Gluconate Complex 125 mg/Sodium Chloride 100 ml @ 100 mls/hr DAILY@1300 IVPB Last administered on 11/02/18 12:46; Admin Dose 100 MLS/HR; Start 10/31/18 at 14:30; Stop 11/02/18 at 13:59 IV Flush (NS 10 ml) 10 ml PRN PRN IV IV PROTOCOL; Start 10/31/18 at 13:30 Sodium Hypochlorite (Dakin'S (Dilute )) 1 applic DAILY IRR Last administered on 11/02/18 09:11; Admin Dose 1 APPLIC; Start 11/01/18 at 09:00 TY BAILEY MD Nov 02, 2018 16:02
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
[2018-11-02] MEDS: MULTIVITAMINS THERAPEUTIC TAB PO SCH (17:25)
[2018-11-02] MEDS: DAPTOMYCIN 410 MG in SOD CHLORIDE 0.9% 100 ML IVPB SCH (17:26)
[2018-11-02 20:00] VITALS: BP 106/58; PULSE 88; RESP 18
[2018-11-02] MEDS: SILVER SULFADIAZINE 1% 25 GM CR TOP SCH (21:23)
[2018-11-02] MEDS: LACTOBACILLUS RHAMNOSUS CAP PO SCH (21:23)
[2018-11-02] MEDS: BACLOFEN IT SCH (21:24)
[2018-11-03 02:00] VITALS: BP 110/52; PULSE 63; RESP 18
[2018-11-03] MEDS: PANTOPRAZOLE (EC) 40 MG TAB PO SCH ×2 (05:35→18:02)
[2018-11-03 07:52] VITALS: BP 100/58; PULSE 61; RESP 18
[2018-11-03] MEDS: LUBIPROSTONE 24 MCG CAP PO SCH ×2 (09:33→21:57)
[2018-11-03] MEDS: LACTOBACILLUS RHAMNOSUS CAP PO SCH ×2 (09:33→21:57)
[2018-11-03] MEDS: MULTIVITAMINS THERAPEUTIC TAB PO SCH (09:33)
[2018-11-03] MEDS: COLLAGENASE 5 GM (UD JAR) TOP SCH (09:34)
[2018-11-03] MEDS: SILVER SULFADIAZINE 1% 25 GM CR TOP SCH ×2 (09:34→21:00)
[2018-11-03] MEDS: ENOXAPARIN 40 MG/0.4 ML SYG SC SCH (09:37)
[2018-11-03] MEDS: SODIUM HYPOCHLORITE (1/40) 1 APPLIC BTL IRR SCH (09:41)
[2018-11-03] MEDS: BALSAM PERU/CASTOR OIL 60 GM TUBE TOP SCH ×4 (09:41→21:56)
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
[2018-11-03] MEDS: DOCUSATE SODIUM 100 MG CAP PO SCH ×2 (12:59→21:57)
[2018-11-03] MEDS ORDERED: BISACODYL (EC) 5 MG TAB PO ONE (13:00)
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
[2018-11-03 14:51] VITALS: BP 115/64; PULSE 80; RESP 16
[2018-11-03] MEDS: DAPTOMYCIN 410 MG in SOD CHLORIDE 0.9% 100 ML IVPB SCH (16:24)
--- NOTE | 2018-11-03 16:31 | CONS ---
Assessment/Plan Assessment/Plan Hospital Course (Demo Recall) Patient is awake, looks comfortable, no fevers Wound cultures + Corynebact JK and Enterococcus Antimicrobials: Daptomycin Allergy: Lisa Mahoneyo Physical examination: Well-developed ill-appearing middle-aged woman who is awake in no distress. Head atraumatic normocephalic neck is supple chest rise symmetrical breath sounds diminished bases. Heart: S1-S2. Abdomen soft bowel sounds present. Extremities: Left hand dressing intact. Patient has multiple pressure sores on her lower extremities Assessment: 1. Infected left long finger/osteomyelitis, status post debridement 2. Multiple pressure sores lower extremities 3. History of [place] 4. History of CVA 5. Anemia Plan: Patient is stable, plan to dc on IV Daptomycin to complete 6 weeks==> till December 13, GI rec-s DW at bedside Consultation Date/Type/Reason Admit Date/Time Oct 28, 2018 at 10:55 Initial Consult Date 10/28/18 Type of Consult id Date/Time of Note DATE: 11/03/18 TIME: 16:30 Exam/Review of Systems Exam Vitals Vital Signs Date Temp Pulse Resp B/P (MAP) Pulse Ox O2 O2 Flow FiO2 Time Delivery Rate 11/03/18 98.0 80 16 115/64 98 14:51 (81) 11/02/18 Nasal 2.0 21:00 Cannula Intake and Output 11/02/18 11/02/18 11/03/18 1515:00 23:00 07:00 IntakeIntake Total 590 ml 550 ml OutputOutput Total 2 ml BalanceBalance 588 ml 550 ml Results Result Diagram: 11/03/18 0443 11/03/18 0443 Results 24hrs Laboratory Tests Test 11/03/18 04:43 11/03/18 04:44 White Blood Count 9.8 Red Blood Count 4.81 Hemoglobin 9.6 L Hematocrit 35.1 L Mean Corpuscular Volume 73.0 L Mean Corpuscular Hemoglobin 20.0 L Mean Corpuscular Hemoglobin Concent 27.4 L Red Cell Distribution Width 32.8 H Platelet Count 475 H Mean Platelet Volume 9.1 Immature Granulocytes % 0.400 Neutrophils % 75.3 Lymphocytes % 14.4 L Monocytes % 7.6 Eosinophils % 1.8 Basophils % 0.5 Nucleated Red Blood Cells % 0.0 Immature Granulocytes # 0.040 H Neutrophils # 7.4 Lymphocytes # 1.4 Monocytes # 0.7 Eosinophils # 0.2 Basophils # 0.1 Nucleated Red Blood Cells # 0.0 Sodium Level 141 Potassium Level 3.6 Chloride Level 102 Carbon Dioxide Level 31 Anion Gap 8 Blood Urea Nitrogen 10 Creatinine 0.50 Est Glomerular Filtrat Rate mL/min > 60 Glucose Level 86 Calcium Level 8.8 Hemoglobin A1c 5.2 Phosphorus Level 3.5 Magnesium Level 1.8 Thyroid Stimulating Hormone (TSH) 2.060 Medications Medication Current Medications Ondansetron HCl (Zofran Inj) 4 mg Q6H PRN IV NAUSEA/VOMITING Last administered on 10/29/18 23:35; Admin Dose 4 MG; Start 10/28/18 at 11:30 Acetaminophen (Tylenol Tab) 650 mg Q6H PRN PO .PAIN 1-3 OR TEMP Last administered on 10/31/18 11:24; Admin Dose 650 MG; Start 10/28/18 at 11:30 Docusate Sodium (Colace) 100 mg Q12H PO Last administered on 11/03/18 12:59; Admin Dose 100 MG; Start 10/28/18 at 11:30 Zolpidem Tartrate (Ambien) 5 mg QHS PRN PO .INSOMNIA; Start 10/28/18 at 11:30 Pantoprazole (Protonix Tab) 40 mg BID@0600,1800 PO Last administered on 11/03/18 05:35; Admin Dose 40 MG; Start 10/28/18 at 18:00 Collagenase (Santyl) 1 applic DAILY TOP Last administered on 11/03/18 09:34; Admin Dose 1 APPLIC; Start 10/28/18 at 21:00 Patient Own Medication 1 ea Q24H IT ; Start 10/28/18 at 21:30 Oxycodone/ Acetaminophen (Percocet (5/ 325)) 1 tab Q4H PRN PO PAIN LEVEL 4-6; Start 10/29/18 at 09:00 Oxycodone/ Acetaminophen (Percocet (5/ 325)) 2 tab Q4H PRN PO PAIN LEVEL 6-10; Start 10/29/18 at 09:00 Enoxaparin Sodium (Lovenox) 40 mg DAILY SC Last administered on 11/03/18 09:37; Admin Dose 40 MG; Start 10/31/18 at 09:00 Daptomycin 410 mg/ Sodium Chloride 100 ml @ 200 mls/hr Q24H IVPB Last administered on 11/03/18 16:24; Admin Dose 200 MLS/HR; Start 10/30/18 at 17:00 Lubiprostone (Amitiza) 24 mcg BID PO Last administered on 11/03/18 09:33; Admin Dose 24 MCG; Start 10/30/18 at 21:00 IV Flush (NS 10 ml) 10 ml PRN PRN IV IV PROTOCOL; Start 10/31/18 at 13:30 Sodium Hypochlorite (Dakin'S (Dilute )) 1 applic DAILY IRR Last administered on 11/03/18 09:41; Admin Dose 1 APPLIC; Start 11/01/18 at 09:00 Lactobacillus Acidophilus/ Rhamnosus (Culturelle) 1 cap BID PO Last administered on 11/03/18 09:33; Admin Dose 1 CAP; Start 11/02/18 at 21:00 Multivitamins Therapeutic (Theragran) 1 tab DAILY PO Last administered on 09:33; Admin Dose 1 TAB; Start 11/02/18 at 16:30 Silver Sulfadiazine (Thermazene 1% 25 Gm) 1 applic BID TOP Last administered on 11/03/18 09:34; Admin Dose 1 APPLIC; Start 11/02/18 at 21:00 Magnesium Citrate (Citroma) 300 ml ONCE ONCE PO ; Start 11/03/18 at 17:30; Stop 11/03/18 at 17:31 Polyethylene Glycol (Miralax) 119 gm ONCE ONCE PO ; Start 11/03/18 at 18:30; Stop 11/03/18 at 18:31 Polyethylene Glycol (Miralax) 119 gm 2ND DOSE (GI PREP) ONCE PO ; Start 11/04/18 at 06:00; Stop 11/04/18 at 06:01 Bisacodyl (Dulcolax) 10 mg 2ND DOSE (GI PREP) ONCE PO ; Start 11/04/18 at 08:00; Stop 11/04/18 at 08:01 STEPHANIE CROW NP Nov 03, 2018 16:31
[2018-11-03] MEDS ORDERED: MAGNESIUM CITRATE 300 ML BTL PO ONE (17:30)
[2018-11-03] MEDS ORDERED: POLYETHYLENE GLYCOL 3350 119 GM POWDER PO ONE (18:30)
[2018-11-03 20:37] VITALS: BP 121/62; PULSE 89; RESP 18
[2018-11-03] MEDS: BACLOFEN IT SCH (21:30)
[2018-11-04 02:18] VITALS: BP 118/74; PULSE 94; RESP 18
[2018-11-04] MEDS: PANTOPRAZOLE (EC) 40 MG TAB PO SCH ×2 (05:38→18:33)
[2018-11-04] MEDS ORDERED: POLYETHYLENE GLYCOL 3350 119 GM POWDER PO ONE (06:00)
[2018-11-04] MEDS ORDERED: BISACODYL (EC) 5 MG TAB PO ONE (08:00)
[2018-11-04 08:13] VITALS: BP 117/62; PULSE 110; RESP 18
[2018-11-04] MEDS: LUBIPROSTONE 24 MCG CAP PO SCH ×2 (08:24→20:49)
[2018-11-04] MEDS: MULTIVITAMINS THERAPEUTIC TAB PO SCH (08:25)
[2018-11-04] MEDS: COLLAGENASE 5 GM (UD JAR) TOP SCH (08:25)
[2018-11-04] MEDS: LACTOBACILLUS RHAMNOSUS CAP PO SCH ×2 (08:25→20:49)
[2018-11-04] MEDS: ENOXAPARIN 40 MG/0.4 ML SYG SC SCH (08:27)
[2018-11-04] MEDS: BALSAM PERU/CASTOR OIL 60 GM TUBE TOP SCH ×4 (08:35→20:51)
[2018-11-04] MEDS: SILVER SULFADIAZINE 1% 25 GM CR TOP SCH ×2 (08:35→20:50)
[2018-11-04] MEDS: SODIUM HYPOCHLORITE (1/40) 1 APPLIC BTL IRR SCH (08:35)
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
[2018-11-04] MEDS: DOCUSATE SODIUM 100 MG CAP PO SCH (11:56)
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
--- NOTE | 2018-11-04 14:12 | CONS ---
Assessment/Plan Assessment/Plan Hospital Course (Demo Recall) No acute events overnight. Patient is lying comfortably in bed no fevers overnight. White blood cell count today is 21.4 with neutrophils 93, BUN 11 creatinine 0.40. Per report she was slightly tachycardic Wound cultures + Corynebact JK and Enterococcus Antimicrobials: Daptomycin Allergy: Zosyn, Vanco Physical examination: Well-developed ill-appearing middle-aged woman who is awake in no distress. Head atraumatic normocephalic neck is supple chest rise symmetrical breath sounds diminished bases. Heart: S1-S2. Abdomen soft bowel sounds present. Extremities: Left hand dressing intact. Patient has multiple pressure sores on her lower extremities Assessment: 1. Infected left long finger/osteomyelitis, status post debridement 2. Multiple pressure sores lower extremities 3. History of AR 4. History of CVA 5. Anemia Plan: We will order chest x-ray and urine culture, add Merrem, continue IV Daptomycin for now to complete 6 weeks==> till December 13, follow labs in a.m. FLORIN RN Consultation Date/Type/Reason Admit Date/Time Oct 28, 2018 at 10:55 Initial Consult Date 10/28/18 Type of Consult id Date/Time of Note DATE: 11/04/18 TIME: 14:09 Exam/Review of Systems Exam Vitals Vital Signs Date Temp Pulse Resp B/P (MAP) Pulse Ox O2 O2 Flow FiO2 Time Delivery Rate 11/04/18 98.8 110 18 117/62 93 Room Air 08:13 (80) 11/04/18 2.0 08:00 Intake and Output 11/03/18 11/03/18 11/04/18 1414:59 22:59 06:59 IntakeIntake Total 1400 ml BalanceBalance 1400 ml Results Result Diagram: 11/04/18 0434 11/04/18 0434 Results 24hrs Laboratory Tests Test 11/04/18 04:34 White Blood Count 21.4 #H Red Blood Count 5.52 H Hemoglobin 11.0 L Hematocrit 40.9 Mean Corpuscular Volume 74.1 L Mean Corpuscular Hemoglobin 19.9 L Mean Corpuscular Hemoglobin Concent 26.9 L Red Cell Distribution Width Platelet Count 526 H Mean Platelet Volume 9.8 Immature Granulocytes % 0.800 H Neutrophils % Segmented Neutrophils % (Manual) 93 H Lymphocytes % Lymphocytes % (Manual) 6 L Monocytes % Monocytes % (Manual) 1 Eosinophils % Basophils % Nucleated Red Blood Cells % 0.0 Immature Granulocytes # 0.170 H Neutrophils # Lymphocytes (Manual) 1.2 Lymphocytes # Monocytes # Monocytes # (Manual) 0.2 L Eosinophils # Basophils # Nucleated Red Blood Cells # Platelet Estimate INCREASED Giant Platelets 3 H Polychromasia 1+ Hypochromasia 1+ Poikilocytosis 1+ Anisocytosis 2+ Microcytosis 2+ Macrocytosis 2+ Prothrombin Time 13.8 Prothrombin Time Ratio 1.1 INR International Normalized Ratio 1.05 Sodium Level 148 H Potassium Level 4.1 Chloride Level 106 Carbon Dioxide Level 34 H Anion Gap 8 Blood Urea Nitrogen 11 Creatinine 0.40 L Est Glomerular Filtrat Rate mL/min > 60 Glucose Level 102 Calcium Level 9.2 Phosphorus Level 3.3 Magnesium Level 2.3 Total Bilirubin 0.3 Direct Bilirubin 0.00 Indirect Bilirubin 0.3 Aspartate Amino Transf (AST/SGOT) 19 Alanine Aminotransferase (ALT/SGPT) 7 L Alkaline Phosphatase 127 H Total Protein 7.1 Albumin 3.5 Globulin 3.60 H Albumin/Globulin Ratio 0.97 Medications Medication Current Medications Ondansetron HCl (Zofran Inj) 4 mg Q6H PRN IV NAUSEA/VOMITING Last administered on 10/29/18 23:35; Admin Dose 4 MG; Start 10/28/18 at 11:30 Acetaminophen (Tylenol Tab) 650 mg Q6H PRN PO .PAIN 1-3 OR TEMP Last admi nistered on 10/31/18 11:24; Admin Dose 650 MG; Start 10/28/18 at 11:30 Docusate Sodium (Colace) 100 mg Q12H PO Last administered on 11/04/18 11:56; Admin Dose 100 MG; Start 10/28/18 at 11:30 Zolpidem Tartrate (Ambien) 5 mg QHS PRN PO .INSOMNIA; Start 10/28/18 at 11:30 Pantoprazole (Protonix Tab) 40 mg BID@0600,1800 PO Last administered on 11/04/18 05:38; Admin Dose 40 MG; Start 10/28/18 at 18:00 Collagenase (Santyl) 1 applic DAILY TOP Last administered on 11/04/18 08:25; Admin Dose 1 APPLIC; Start 10/28/18 at 21:00 Patient Own Medication 1 ea Q24H IT ; Start 10/28/18 at 21:30 Oxycodone/ Acetaminophen (Percocet (5/ 325)) 1 tab Q4H PRN PO PAIN LEVEL 4-6; Start 10/29/18 at 09:00 Oxycodone/ Acetaminophen (Percocet (5/ 325)) 2 tab Q4H PRN PO PAIN LEVEL 6-10; Start 10/29/18 at 09:00 Enoxaparin Sodium (Lovenox) 40 mg DAILY SC Last administered on 11/04/18 08:27; Admin Dose 40 MG; Start 10/31/18 at 09:00 Daptomycin 410 mg/ Sodium Chloride 100 ml @ 200 mls/hr Q24H IVPB Last administered on 11/03/18 16:24; Admin Dose 200 MLS/HR; Start 10/30/18 at 17:00 Lubiprostone (Amitiza) 24 mcg BID PO Last administered on 11/04/18 08:24; Admin Dose 24 MCG; Start 10/30/18 at 21:00 IV Flush (NS 10 ml) 10 ml PRN PRN IV IV PROTOCOL; Start 10/31/18 at 13:30 Sodium Hypochlorite (Dakin'S (Dilute 140)) 1 applic DAILY IRR Last administered on 11/04/18 08:35; Admin Dose 1 APPLIC; Start 11/01/18 at 09:00 Lactobacillus Acidophilus/ Rhamnosus (Culturelle) 1 cap BID PO Last administered on 11/04/18 08:25; Admin Dose 1 CAP; Start 11/02/18 at 21:00 Multivitamins Therapeutic (Theragran) 1 tab DAILY PO Last administered on 11/04/18 08:25; Admin Dose 1 TAB; Start 11/02/18 at 16:30 Silver Sulfadiazine (Thermazene 1% 25 Gm) 1 applic BID TOP Last administered on 11/04/18 08:35; Admin Dose 1 APPLIC; Start 11/02/18 at 21:00 STEPHANIE CROW NP Nov 04, 2018 14:12
[2018-11-04 14:44] VITALS: BP 114/64; PULSE 108; RESP 18
[2018-11-04] MEDS: MEROPENEM 1 GM/50ML(PMX) 50 ML IVPB SCH ×2 (15:12→20:48)
[2018-11-04] MEDS ORDERED: BARIUM SULFATE 135 ML (E-Z HD) PO ONE (16:39)
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
[2018-11-04] MEDS: DAPTOMYCIN 410 MG in SOD CHLORIDE 0.9% 100 ML IVPB SCH (18:33)
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
--- NOTE | 2018-11-04 19:21 | CONS ---
Consult Date/Type/Reason Admit Date/Time Oct 28, 2018 at 10:55 Initial Consult Date 10/28/18 Type of Consultation: cv Date/Time of Note DATE: 11/04/18 TIME: 19:20 Subjective Interventional cardiology follow-up progress note Subjective: Discussed with the staff. Patient with no chest pain or pressure. no report of any active bleeding no report of shortness of breath . Events noted: Status post debridement 10/29/2018 10/30/18: EGD ( and incomplete colo) Objective: General: no acute distress HEENT: NC/AT. pupils are equal. round. NECK: NO JVD. no stridor. CV: RRR. systolic murmur; no gallop or rubs. PULM: no wheezing or rhonchi. GI: SOFT, NT, ND, no rebound or guarding Extremity: Right upper extremity is contracted Left hand finger edematous is in dressing neuro: awake and alert, OX2. Psych: calm and pleasant rectal: deferred Echocardiogram was personally reviewed which shows: Normal left ventricular systolic function. Normal left ventricular cavity size. Left ventricular wall thickness upper limits of normal. Ejection fraction is visually estimated at 65 %. Tissue Doppler/Mitral Doppler indices are within normal limits. Mild mitral leaflet calcification. Mild mitral annular calcification. Trace mitral regurgitation. No significant aortic stenosis or insufficiency. Aortic cusps appear mildly calcified. Normal appearance of the tricuspid valve. Estimated peak PA systolic pressure 34 mmHg. There is mild tricuspid regurgitation. EKG was personally reviewed which shows: Normal sinus rhythm. Low voltage. Cannot rule anterior infarct Objective Vitals Vital Signs Date Temp Pulse Resp B/P (MAP) Pulse Ox O2 O2 Flow FiO2 Time Delivery Rate 11/04/18 98.7 108 18 114/64 94 Room Air 14:44 (81) 11/04/18 2.0 08:00 Intake and Output 11/03/18 11/03/18 11/04/18 1515:00 23:00 07:00 IntakeIntake Total 1400 ml BalanceBalance 1400 ml Results/Medications Result Diagram: 11/04/18 0434 11/04/18 0434 Results 24 hrs Laboratory Tests Test 11/04/18 04:34 White Blood Count 21.4 #H Red Blood Count 5.52 H Hemoglobin 11.0 L Hematocrit 40.9 Mean Corpuscular Volume 74.1 L Mean Corpuscular Hemoglobin 19.9 L Mean Corpuscular Hemoglobin Concent 26.9 L Red Cell Distribution Width Platelet Count 526 H Mean Platelet Volume 9.8 Immature Granulocytes % 0.800 H Neutrophils % Segmented Neutrophils % (Manual) 93 H Lymphocytes % Lymphocytes % (Manual) 6 L Monocytes % Monocytes % (Manual) 1 Eosinophils % Basophils % Nucleated Red Blood Cells % 0.0 Immature Granulocytes # 0.170 H Neutrophils # Lymphocytes (Manual) 1.2 Lymphocytes # Monocytes # Monocytes # (Manual) 0.2 L Eosinophils # Basophils # Nucleated Red Blood Cells # Platelet Estimate INCREASED Giant Platelets 3 H Polychromasia 1+ Hypochromasia 1+ Poikilocytosis 1+ Anisocytosis 2+ Microcytosis 2+ Macrocytosis 2+ Prothrombin Time 13.8 Prothrombin Time Ratio 1.1 INR International Normalized Ratio 1.05 Sodium Level 148 H Potassium Level 4.1 Chloride Level 106 Carbon Dioxide Level 34 H Anion Gap 8 Blood Urea Nitrogen 11 Creatinine 0.40 L Est Glomerular Filtrat Rate mL/min > 60 Glucose Level 102 Calcium Level 9.2 Phosphorus Level 3.3 Magnesium Level 2.3 Total Bilirubin 0.3 Direct Bilirubin 0.00 Indirect Bilirubin 0.3 Aspartate Amino Transf (AST/SGOT) 19 Alanine Aminotransferase (ALT/SGPT) 7 L Alkaline Phosphatase 127 H Total Protein 7.1 Albumin 3.5 Globulin 3.60 H Albumin/Globulin Ratio 0.97 Home Meds Reported Medications Metronidazole* (Flagyl*) 500 Mg Tablet, 500 MG PO BID, TAB 10/28/18 Sulfamethoxazole/Trimethoprim* (Bactrim Ds* Tablet) 1 Each Tablet, 2 TAB PO BID, TAB 10/28/18 Clindamycin Hcl* (Clindamycin Hcl*) 300 Mg Capsule, 300 MG PO Q8, CAP 10/28/18 Furosemide* (Furosemide*) 20 Mg Tablet, 20 MG PO DAILY, #60 TAB 10/28/18 Omeprazole* (Omeprazole*) 20 Mg Capsule.dr, 20 MG PO BID, #60 CAP 10/28/18 Baclofen* (Baclofen*) 10 Mg Tablet, 960 MCG INTRACATH DAILY, TAB 10/28/18 Medications Current Medications Ondansetron HCl (Zofran Inj) 4 mg Q6H PRN IV NAUSEA/VOMITING Last administered on 10/29/18at 23:35; Admin Dose 4 MG; Start 10/28/18 at 11:30 Acetaminophen (Tylenol Tab) 650 mg Q6H PRN PO .PAIN 1-3 OR TEMP Last administered on 10/31/18 11:24; Admin Dose 650 MG; Start 10/28/18 at 11:30 Zolpidem Tartrate (Ambien) 5 mg QHS PRN PO .INSOMNIA; Start 10/28/18 at 11:30 Pantoprazole (Protonix Tab) 40 mg BID@0600,1800 PO Last administered on 11/04/18 18:33; Admin Dose 40 MG; Start 10/28/18 at 18:00 Collagenase (Santyl) 1 applic DAILY TOP Last administered on 11/04/18 08:25; Admin Dose 1 APPLIC; Start 10/28/18 at 21:00 Patient Own Medication 1 ea Q24H IT ; Start 10/28/18 at 21:30 Oxycodone/ Acetaminophen (Percocet (5/ 325)) 1 tab Q4H PRN PO PAIN LEVEL 4-6; Start 10/29/18 at 09:00 Oxycodone/ Acetaminophen (Percocet (5/ 325)) 2 tab Q4H PRN PO PAIN LEVEL 6-10; Start 10/29/18 at 09:00 Enoxaparin Sodium (Lovenox) 40 mg DAILY SC Last administered on 11/04/18 08:27; Admin Dose 40 MG; Start 10/31/18 at 09:00 Daptomycin 410 mg/ Sodium Chloride 100 ml @ 200 mls/hr Q24H IVPB Last administered on 11/04/18 18:33; Admin Dose 200 MLS/HR; Start 10/30/18 at 17:00 Lubiprostone (Amitiza) 24 mcg BID PO Last administered on 11/04/18 08:24; Admin Dose 24 MCG; Start 10/30/18 at 21:00 IV Flush (NS 10 ml) 10 ml PRN PRN IV IV PROTOCOL; Start 10/31/18 at 13:30 Sodium Hypochlorite (Dakin'S (Dilute 40)) 1 applic DAILY IRR Last administered on 11/04/18 08:35; Admin Dose 1 APPLIC; Start 11/01/18 at 09:00 Lactobacillus Acidophilus/ Rhamnosus (Culturelle) 1 cap BID PO Last administered on 11/04/18 08:25; Admin Dose 1 CAP; Start 11/02/18 at 21:00 Multivitamins Therapeutic (Theragran) 1 tab DAILY PO Last administered on 11/04/18 08:25; Admin Dose 1 TAB; Start 11/02/18 at 16:30 Silver Sulfadiazine (Thermazene 1% 25 Gm) 1 applic BID TOP Last administered on 11/04/18 08:35; Admin Dose 1 APPLIC; Start 11/02/18 at 21:00 Meropenem/Sodium Chloride 50 ml @ 100 mls/hr Q12 IVPB Last administered on 11/04/18 15:12; Admin Dose 100 MLS/HR; Start 11/04/18 at 14:30 Docusate Sodium (Colace) 250 mg DAILY PO ; Start 11/05/18 at 09:00 Polyethylene Glycol (Miralax) 8.5 gm DAILY PO ; Start 11/05/18 at 09:00 Assessment/Plan Hospital Course (Demo Recall) 1. Cardiovascular preop evaluation 2. Left finger infection/possible osteomyelitis: Status post I&D 3. Severe anemia 4. History of anoxic brain injury and encephalopathy 5. Abnormal EKG but normal ejection fraction and echo 6. History of Haque's esophagus/vagina status post endoscopy 7. Leukocytosis Recommendations: Postop care/wound care as per ortho Transfusions as needed PPIs follow up with GI consultation recommendations. . Thank you for his referral. We will continue to follow along with you as needed TRACY CHAUDHARY MD [facility] TRACY CHAUDHARY MD Nov 04, 2018 19:21
[2018-11-04 20:00] VITALS: BP 103/59; PULSE 74; RESP 18
[2018-11-04] MEDS: BACLOFEN IT SCH (20:51)
[2018-11-05 02:00] VITALS: BP 100/57; PULSE 67; RESP 18
[2018-11-05] MEDS: PANTOPRAZOLE (EC) 40 MG TAB PO SCH ×2 (06:11→18:19)
[2018-11-05 08:13] VITALS: BP 94/50; PULSE 61; RESP 16
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
[2018-11-05] MEDS: ENOXAPARIN 40 MG/0.4 ML SYG SC SCH (11:09)
[2018-11-05] MEDS: MULTIVITAMINS THERAPEUTIC TAB PO SCH (11:09)
[2018-11-05] MEDS: COLLAGENASE 5 GM (UD JAR) TOP SCH (11:09)
[2018-11-05] MEDS: POLYETHYLENE GLYCOL 17 GM PACKET PO SCH (11:09)
[2018-11-05] MEDS: SODIUM HYPOCHLORITE (1/40) 1 APPLIC BTL IRR SCH (11:10)
[2018-11-05] MEDS: DOCUSATE SODIUM 250 MG CAP PO SCH (11:10)
[2018-11-05] MEDS: LACTOBACILLUS RHAMNOSUS CAP PO SCH ×2 (11:10→20:19)
[2018-11-05] MEDS: LUBIPROSTONE 24 MCG CAP PO SCH ×2 (11:10→20:19)
[2018-11-05] MEDS: MEROPENEM 1 GM/50ML(PMX) 50 ML IVPB SCH ×2 (11:10→20:19)
[2018-11-05] MEDS: BALSAM PERU/CASTOR OIL 60 GM TUBE TOP SCH ×4 (11:10→20:19)
[2018-11-05] MEDS: SILVER SULFADIAZINE 1% 25 GM CR TOP SCH ×2 (11:11→20:19)
--- NOTE | 2018-11-05 13:23 | CONS ---
Assessment/Plan Assessment/Plan Hospital Course (Demo Recall) Patient is alert looks better no fevers overnight WBC 12.6 platelets 319 BUN 14 creatinine 0.42 Chest x-ray yesterday revealed no evidence of acute cardiopulmonary process. CT of the lower extremity revealed osteomyelitis of the posterior plantar calcaneus with adjacent soft tissue wound/ulcer Wound cultures + Corynebact JK and Enterococcus Antimicrobials: Daptomycin, Merrem Allergy: Zosyn, Vanco Physical examination: Well-developed ill-appearing middle-aged woman who is awake in no distress. Head atraumatic normocephalic neck is supple chest rise symmetrical breath sounds diminished bases. Heart: S1-S2. Abdomen soft bowel sounds present. Extremities: Left hand dressing intact. Patient has multiple pressure sores on her lower extremities Assessment: 1. Infected left long finger/osteomyelitis, status post debridement 2. Left calcaneus osteomyelitis 3. History of [place] 4. History of CVA 5. Anemia Plan: Remains stable, continue on broad-spectrum antibiotics, follow podiatry recommendations, anticipate discharge on IV Daptomycin to complete 6 weeks==> till December 13 FLORIN RN Consultation Date/Type/Reason Admit Date/Time Oct 28, 2018 at 10:55 Initial Consult Date 10/28/18 Type of Consult id Date/Time of Note DATE: 11/05/18 TIME: 13:21 Exam/Review of Systems Exam Vitals Vital Signs Date Temp Pulse Resp B/P (MAP) Pulse Ox O2 O2 Flow FiO2 Time Delivery Rate 11/05/18 98.1 61 16 94/50 (65) 94 08:13 11/04/18 Room Air 14:44 11/04/18 2.0 08:00 Intake and Output 11/04/18 11/04/18 11/05/18 1515:00 23:00 07:00 IntakeIntake Total 225 ml 150 ml OutputOutput Total 400 ml BalanceBalance 225 ml -250 ml Results Result Diagram: 11/05/18 0559 11/05/18 0558 Results 24hrs Laboratory Tests Test 11/05/18 05:58 11/05/18 05:59 Sodium Level 140 Potassium Level 4.1 Chloride Level 102 Carbon Dioxide Level 31 Anion Gap 7 Blood Urea Nitrogen 14 Creatinine 0.42 L Est Glomerular Filtrat Rate mL/min > 60 Glucose Level 75 Calcium Level 8.7 Phosphorus Level 3.4 Magnesium Level 1.8 White Blood Count 12.6 #H Red Blood Count 4.64 Hemoglobin 9.5 L Hematocrit 34.5 L Mean Corpuscular Volume 74.4 L Mean Corpuscular Hemoglobin 20.5 L Mean Corpuscular Hemoglobin Concent 27.5 L Red Cell Distribution Width Platelet Count 319 # Mean Platelet Volume 9.3 Immature Granulocytes % 0.600 H Neutrophils % Lymphocytes % Monocytes % Eosinophils % Basophils % Nucleated Red Blood Cells % 0.0 Immature Granulocytes # 0.070 H Neutrophils # Lymphocytes # Monocytes # Eosinophils # Basophils # Nucleated Red Blood Cells # Medications Medication Current Medications Ondansetron HCl (Zofran Inj) 4 mg Q6H PRN IV NAUSEA/VOMITING Last administered on 10/29/18 23:35; Admin Dose 4 MG; Start 10/28/18 at 11:30 Acetaminophen (Tylenol Tab) 650 mg Q6H PRN PO .PAIN 1-3 OR TEMP Last administered on 10/31/18at 11:24; Admin Dose 650 MG; Start 10/28/18 at 11:30 Zolpidem Tartrate (Ambien) 5 mg QHS PRN PO .INSOMNIA; Start 10/28/18 at 11:30 Pantoprazole (Protonix Tab) 40 mg BID@0600,1800 PO Last administered on 11/05/18 06:11; Admin Dose 40 MG; Start 10/28/18 at 18:00 Collagenase (Santyl) 1 applic DAILY TOP Last administered on 11/05/18 11:09; Admin Dose 1 APPLIC; Start 10/28/18 at 21:00 Patient Own Medication 1 ea Q24H IT ; Start 10/28/18 at 21:30 Oxycodone/ Acetaminophen (Percocet (5/ 325)) 1 tab Q4H PRN PO PAIN LEVEL 4-6; Start 10/29/18 at 09:00 Oxycodone/ Acetaminophen (Percocet (5/ 325)) 2 tab Q4H PRN PO PAIN LEVEL 6-10; Start 10/29/18 at 09:00 Enoxaparin Sodium (Lovenox) 40 mg DAILY SC Last administered on 11/05/18 11:09; Admin Dose 40 MG; Start 10/31/18 at 09:00 Daptomycin 410 mg/ Sodium Chloride 100 ml @ 200 mls/hr Q24H IVPB Last administered on 11/04/18 18:33; Admin Dose 200 MLS/HR; Start 10/30/18 at 17:00 Lubiprostone (Amitiza) 24 mcg BID PO Last administered on 11/05/18 11:10; Admin Dose 24 MCG; Start 10/30/18 at 21:00 IV Flush (NS 10 ml) 10 ml PRN PRN IV IV PROTOCOL; Start 10/31/18 at 13:30 Sodium Hypochlorite (Dakin'S (Dilute )) 1 applic DAILY IRR Last admin istered on 11/05/18 11:10; Admin Dose 1 APPLIC; Start 11/01/18 at 09:00 Lactobacillus Acidophilus/ Rhamnosus (Culturelle) 1 cap BID PO Last administered on 11/05/18 11:10; Admin Dose 1 CAP; Start 11/02/18 at 21:00 Multivitamins Therapeutic (Theragran) 1 tab DAILY PO Last administered on 11/05/18 11:09; Admin Dose 1 TAB; Start 11/02/18 at 16:30 Silver Sulfadiazine (Thermazene 1% 25 Gm) 1 applic BID TOP Last administered on 11/05/18 11:11; Admin Dose 1 APPLIC; Start 11/02/18 at 21:00 Meropenem/Sodium Chloride 50 ml @ 100 mls/hr Q12 IVPB Last administered on 11/05/18 11:10; Admin Dose 100 MLS/HR; Start 11/04/18 at 14:30 Docusate Sodium (Colace) 250 mg DAILY PO Last administered on 11/05/18 11:10; Admin Dose 250 MG; Start 11/05/18 at 09:00 Polyethylene Glycol (Miralax) 8.5 gm DAILY PO Last administered on 11/05/18 11:09; Admin Dose 8.5 GM; Start 11/05/18 at 09:00 STEPHANIE CROW NP Nov 05, 2018 13:23
[2018-11-05 14:45] VITALS: BP 101/56; PULSE 72; RESP 16
[2018-11-05] MEDS ORDERED: DAPT500V IV (16:18)
[2018-11-05] MEDS ORDERED: SILV20CR12 TOP (16:18)
[2018-11-05] MEDS ORDERED: LACT1CAP28 PO (16:18)
[2018-11-05] MEDS ORDERED: DOCU250C58 PO (16:18)
[2018-11-05] MEDS ORDERED: BALS60OI TOP (16:18)
[2018-11-05] MEDS ORDERED: POLY1BAN TP (16:18)
[2018-11-05] MEDS ORDERED: PANT40TA4 PO (16:18)
[2018-11-05] MEDS ORDERED: [UNRECOGNIZED DRUG - CODE] MC (16:18)
[2018-11-05] MEDS ORDERED: SAN30GM TOP (16:18)
[2018-11-05] MEDS ORDERED: MULTI PO (16:18)
[2018-11-05] MEDS ORDERED: POLY17PO6 PO (16:18)
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
[2018-11-05] MEDS: DAPTOMYCIN 410 MG in SOD CHLORIDE 0.9% 100 ML IVPB SCH (18:19)
--- NOTE | 2018-11-05 19:17 | CONS ---
Consult Date/Type/Reason Admit Date/Time Oct 28, 2018 at 10:55 Initial Consult Date 10/28/18 Type of Consultation: cv Date/Time of Note DATE: 11/05/18 TIME: 19:16 Subjective Interventional cardiology follow-up progress note Subjective: Discussed with the staff. Patient with no chest pain or pressure. no report of any active bleeding no report of shortness of breath . Events noted: Status post debridement 10/29/2018 10/30/18: EGD ( and incomplete colo) Objective: General: no acute distress HEENT: NC/AT. pupils are equal. round. NECK: NO JVD. no stridor. CV: RRR. systolic murmur; no gallop or rubs. PULM: no wheezing or rhonchi. GI: SOFT, NT, ND, no rebound or guarding Extremity: Right upper extremity is contracted Left hand finger edematous is in dressing neuro: awake and alert, OX2. Psych: calm and pleasant rectal: deferred Echocardiogram was personally reviewed which shows: Normal left ventricular systolic function. Normal left ventricular cavity size. Left ventricular wall thickness upper limits of normal. Ejection fraction is visually estimated at 65 %. Tissue Doppler/Mitral Doppler indices are within normal limits. Mild mitral leaflet calcification. Mild mitral annular calcification. Trace mitral regurgitation. No significant aortic stenosis or insufficiency. Aortic cusps appear mildly calcified. Normal appearance of the tricuspid valve. Estimated peak PA systolic pressure 34 mmHg. There is mild tricuspid regurgitation. CT Findings consistent with osteomyelitis of the posterior plantar calcaneus with adjacent soft tissue wound/ulcer. Objective Vitals Vital Signs Date Temp Pulse Resp B/P (MAP) Pulse Ox O2 O2 Flow FiO2 Time Delivery Rate 11/05/18 97.9 72 16 101/56 95 14:45 (71) 11/04/18 Room Air 14:44 11/04/18 2.0 08:00 Intake and Output 11/04/18 11/04/18 11/05/18 1515:00 23:00 07:00 IntakeIntake Total 225 ml 150 ml OutputOutput Total 400 ml BalanceBalance 225 ml -250 ml Results/Medications Result Diagram: 11/05/18 0559 11/05/18 0558 Results 24 hrs Laboratory Tests Test 11/05/18 05:58 11/05/18 05:59 Sodium Level 140 Potassium Level 4.1 Chloride Level 102 Carbon Dioxide Level 31 Anion Gap 7 Blood Urea Nitrogen 14 Creatinine 0.42 L Est Glomerular Filtrat Rate mL/min > 60 Glucose Level 75 Calcium Level 8.7 Phosphorus Level 3.4 Magnesium Level 1.8 White Blood Count 12.6 #H Red Blood Count 4.64 Hemoglobin 9.5 L Hematocrit 34.5 L Mean Corpuscular Volume 74.4 L Mean Corpuscular Hemoglobin 20.5 L Mean Corpuscular Hemoglobin Concent 27.5 L Red Cell Distribution Width Platelet Count 319 # Mean Platelet Volume 9.3 Immature Granulocytes % 0.600 H Neutrophils % Lymphocytes % Monocytes % Eosinophils % Basophils % Nucleated Red Blood Cells % 0.0 Immature Granulocytes # 0.070 H Neutrophils # Lymphocytes # Monocytes # Eosinophils # Basophils # Nucleated Red Blood Cells # Home Meds Reported Medications Metronidazole* (Flagyl*) 500 Mg Tablet, 500 MG PO BID, TAB 10/28/18 Sulfamethoxazole/Trimethoprim* (Bactrim Ds* Tablet) 1 Each Tablet, 2 TAB PO BID, TAB 10/28/18 Clindamycin Hcl* (Clindamycin Hcl*) 300 Mg Capsule, 300 MG PO Q8, CAP 10/28/18 Furosemide* (Furosemide*) 20 Mg Tablet, 20 MG PO DAILY, #60 TAB 10/28/18 Omeprazole* (Omeprazole*) 20 Mg Capsule.dr, 20 MG PO BID, #60 CAP 10/28/18 Baclofen* (Baclofen*) 10 Mg Tablet, 960 MCG INTRACATH DAILY, TAB 10/28/18 Medications Current Medications Ondansetron HCl (Zofran Inj) 4 mg Q6H PRN IV NAUSEA/VOMITING Last administered on 10/29/18at 23:35; Admin Dose 4 MG; Start 10/28/18 at 11:30 Acetaminophen (Tylenol Tab) 650 mg Q6H PRN PO .PAIN 1-3 OR TEMP Last administered on 10/31/18at 11:24; Admin Dose 650 MG; Start 10/28/18 at 11:30 Zolpidem Tartrate (Ambien) 5 mg QHS PRN PO .INSOMNIA; Start 10/28/18 at 11:30 Pantoprazole (Protonix Tab) 40 mg BID@0600,1800 PO Last administered on 11/05/18at 18:19; Admin Dose 40 MG; Start 10/28/18 at 18:00 Collagenase (Santyl) 1 applic DAILY TOP Last administered on 11/05/18 11:09; Admin Dose 1 APPLIC; Start 10/28/18 at 21:00 Patient Own Medication 1 ea Q24H IT ; Start 10/28/18 at 21:30 Oxycodone/ Acetaminophen (Percocet (5/ 325)) 1 tab Q4H PRN PO PAIN LEVEL 4-6; Start 10/29/18 at 09:00 Oxycodone/ Acetaminophen (Percocet (5/ 325)) 2 tab Q4H PRN PO PAIN LEVEL 6-10; Start 10/29/18 at 09:00 Enoxaparin Sodium (Lovenox) 40 mg DAILY SC Last administered on 11/05/18 11:09; Admin Dose 40 MG; Start 10/31/18 at 09:00 Daptomycin 410 mg/ Sodium Chloride 100 ml @ 200 mls/hr Q24H IVPB Last admin istered on 11/05/18 18:19; Admin Dose 200 MLS/HR; Start 10/30/18 at 17:00 Lubiprostone (Amitiza) 24 mcg BID PO Last administered on 11/05/18 11:10; Admin Dose 24 MCG; Start 10/30/18 at 21:00 IV Flush (NS 10 ml) 10 ml PRN PRN IV IV PROTOCOL; Start 10/31/18 at 13:30 Sodium Hypochlorite (Dakin'S (Dilute 1/40)) 1 applic DAILY IRR Last administered on 11/05/18 11:10; Admin Dose 1 APPLIC; Start 11/01/18 at 09:00 Lactobacillus Acidophilus/ Rhamnosus (Culturelle) 1 cap BID PO Last administered on 11/05/18 11:10; Admin Dose 1 CAP; Start 11/02/18 at 21:00 Multivitamins Therapeutic (Theragran) 1 tab DAILY PO Last administered on 11/05/18 11:09; Admin Dose 1 TAB; Start 11/02/18 at 16:30 Silver Sulfadiazine (Thermazene 1% 25 Gm) 1 applic BID TOP Last administered on 11/05/18 11:11; Admin Dose 1 APPLIC; Start 11/02/18 at 21:00 Meropenem/Sodium Chloride 50 ml @ 100 mls/hr Q12 IVPB Last administered on 11/05/18 11:10; Admin Dose 100 MLS/HR; Start 11/04/18 at 14:30 Docusate Sodium (Colace) 250 mg DAILY PO Last administered on 11/05/18 11:10; Admin Dose 250 MG; Start 11/05/18 at 09:00 Polyethylene Glycol (Miralax) 8.5 gm DAILY PO Last administered on 11/05/18 11:09; Admin Dose 8.5 GM; Start 11/05/18 at 09:00 Assessment/Plan Hospital Course (Demo Recall) 1. Cardiovascular preop evaluation 2. Left finger infection/possible osteomyelitis: Status post I&D 3. Severe anemia 4. History of anoxic brain injury and encephalopathy 5. Abnormal EKG but normal ejection fraction and echo 6. History of Haque's esophagus/vagina status post endoscopy 7. Leukocytosis Recommendations: Postop care/wound care as per ortho Transfusions as needed PPIs follow up with GI and ortho consultation recommendations. . Thank you for his referral. We will continue to follow along with you as needed TRACY CHAUDHARY MD [facility] TRACY CHAUDHARY MD Nov 05, 2018 19:17
[2018-11-05 20:00] VITALS: BP 104/58; PULSE 72; RESP 17
[2018-11-05] MEDS: BACLOFEN IT SCH (20:25)
[2018-11-06 02:00] VITALS: BP 106/59; PULSE 75; RESP 18
[2018-11-06] MEDS: PANTOPRAZOLE (EC) 40 MG TAB PO SCH ×2 (06:47→17:10)
[2018-11-06 07:55] VITALS: BP 103/55; PULSE 61; RESP 16
[2018-11-06] MEDS: SODIUM HYPOCHLORITE (1/40) 1 APPLIC BTL IRR SCH (09:32)
[2018-11-06] MEDS: LACTOBACILLUS RHAMNOSUS CAP PO SCH (09:33)
[2018-11-06] MEDS: MULTIVITAMINS THERAPEUTIC TAB PO SCH (09:33)
[2018-11-06] MEDS: ENOXAPARIN 40 MG/0.4 ML SYG SC SCH (09:33)
[2018-11-06] MEDS: MEROPENEM 1 GM/50ML(PMX) 50 ML IVPB SCH (09:33)
[2018-11-06] MEDS: DOCUSATE SODIUM 250 MG CAP PO SCH (09:33)
[2018-11-06] MEDS: COLLAGENASE 5 GM (UD JAR) TOP SCH (09:33)
[2018-11-06] MEDS: LUBIPROSTONE 24 MCG CAP PO SCH (09:33)
[2018-11-06] MEDS: POLYETHYLENE GLYCOL 17 GM PACKET PO SCH (09:33)
[2018-11-06] MEDS: SILVER SULFADIAZINE 1% 25 GM CR TOP SCH (09:34)
[2018-11-06] MEDS: BALSAM PERU/CASTOR OIL 60 GM TUBE TOP SCH ×2 (09:34)
--- NOTE | 2018-11-06 11:12 | CONS ---
Assessment/Plan Assessment/Plan Hospital Course (Demo Recall) No acute events, looks comfortable, afebrile Chest x-ray 11/04/18 revealed no evidence of acute cardiopulmonary process. CT of the lower extremity revealed osteomyelitis of the posterior plantar calcaneus with adjacent soft tissue wound/ulcer Wound cultures + Corynebact JK and Enterococcus Antimicrobials: Daptomycin, Merrem Allergy: Zosyn, Vanco Physical examination: Well-developed ill-appearing middle-aged woman who is awake in no distress. Head atraumatic normocephalic neck is supple chest rise symmetrical breath sounds diminished bases. Heart: S1-S2. Abdomen soft bowel sounds present. Extremities: Left hand dressing intact. Patient has multiple pressure sores on her lower extremities Assessment: 1. Infected left long finger/osteomyelitis, status post debridement 2. Left calcaneus osteomyelitis 3. History of [place] 4. History of CVA 5. Anemia Plan: Remains stable, wbc trending down, anticipate discharge on IV Daptomycin to complete 6 weeks==> till December 13 Consultation Date/Type/Reason Admit Date/Time Oct 28, 2018 at 10:55 Initial Consult Date 10/28/18 Type of Consult id Date/Time of Note DATE: 11/06/18 TIME: 11:11 Exam/Review of Systems Exam Vitals Vital Signs Date Temp Pulse Resp B/P (MAP) Pulse Ox O2 O2 Flow FiO2 Time Delivery Rate 11/06/18 97.8 61 16 103/55 93 07:55 (71) 11/04/18 Room Air 14:44 11/04/18 2.0 08:00 Intake and Output 11/05/18 11/05/18 11/06/18 1515:00 23:00 07:00 IntakeIntake Total 50 ml 1450 ml BalanceBalance 50 ml 1450 ml Results Result Diagram: 11/06/18 0452 11/06/18 0452 Results 24hrs Laboratory Tests Test 11/06/18 04:52 White Blood Count 11.4 H Red Blood Count 4.75 Hemoglobin 9.8 L Hematocrit 35.4 L Mean Corpuscular Volume 74.5 L Mean Corpuscular Hemoglobin 20.6 L Mean Corpuscular Hemoglobin Concent 27.7 L Red Cell Distribution Width Platelet Count 501 #H Mean Platelet Volume 9.7 Immature Granulocytes % 0.600 H Neutrophils % Segmented Neutrophils % (Manual) 79 H Lymphocytes % Lymphocytes % (Manual) 13 L Monocytes % Monocytes % (Manual) 4 Eosinophils % Eosinophils % (Manual) 2 Basophils % Basophils % (Manual) 2 Nucleated Red Blood Cells % 0.0 Immature Granulocytes # 0.070 H Neutrophils # Lymphocytes (Manual) 1.4 Lymphocytes # Monocytes # Monocytes # (Manual) 0.4 Eosinophils # Basophils # Basophils # (Manual) 0.2 H Nucleated Red Blood Cells # Platelet Estimate INCREASED Giant Platelets 7 H Polychromasia 1+ Hypochromasia 2+ Anisocytosis 2+ Microcytosis 2+ Macrocytosis 1+ Ovalocytes 1+ Sodium Level 139 Potassium Level 4.2 Chloride Level 103 Carbon Dioxide Level 31 Anion Gap 5 Blood Urea Nitrogen 14 Creatinine 0.43 L Est Glomerular Filtrat Rate mL/min > 60 Glucose Level 77 Calcium Level 8.7 Medications Medication Current Medications Ondansetron HCl (Zofran Inj) 4 mg Q6H PRN IV NAUSEA/VOMITING Last administered on 10/29/18at 23:35; Admin Dose 4 MG; Start 10/28/18 at 11:30 Acetaminophen (Tylenol Tab) 650 mg Q6H PRN PO .PAIN 1-3 OR TEMP Last administered on 10/31/18at 11:24; Admin Dose 650 MG; Start 10/28/18 at 11:30 Zolpidem Tartrate (Ambien) 5 mg QHS PRN PO .INSOMNIA; Start 10/28/18 at 11:30 Pantoprazole (Protonix Tab) 40 mg BID@0600,1800 PO Last administered on 11/06/18at 06:47; Admin Dose 40 MG; Start 10/28/18 at 18:00 Collagenase (Santyl) 1 applic DAILY TOP Last administered on 11/06/18at 09:33; Admin Dose 1 APPLIC; Start 10/28/18 at 21:00 Patient Own Medication 1 ea Q24H IT ; Start 10/28/18 at 21:30 Oxycodone/ Acetaminophen (Percocet (5/ 325)) 1 tab Q4H PRN PO PAIN LEVEL 4-6; Start 10/29/18 at 09:00 Oxycodone/ Acetaminophen (Percocet (5/ 325)) 2 tab Q4H PRN PO PAIN LEVEL 6-10; Start 10/29/18 at 09:00 Enoxaparin Sodium (Lovenox) 40 mg DAILY SC Last administered on 11/06/18 09:33; Admin Dose 40 MG; Start 10/31/18 at 09:00 Daptomycin 410 mg/ Sodium Chloride 100 ml @ 200 mls/hr Q24H IVPB Last administered on 11/05/18 18:19; Admin Dose 200 MLS/HR; Start 10/30/18 at 17:00 Lubiprostone (Amitiza) 24 mcg BID PO Last administered on 11/06/18 09:33; Admin Dose 24 MCG; Start 10/30/18 at 21:00 IV Flush (NS 10 ml) 10 ml PRN PRN IV IV PROTOCOL; Start 10/31/18 at 13:30 Sodium Hypochlorite (Dakin'S (Dilute )) 1 applic DAILY IRR Last administered on 11/06/18 09:32; Admin Dose 1 APPLIC; Start 11/01/18 at 09:00 Lactobacillus Acidophilus/ Rhamnosus (Culturelle) 1 cap BID PO Last administered on 11/06/18 09:33; Admin Dose 1 CAP; Start 11/02/18 at 21:00 Multivitamins Therapeutic (Theragran) 1 tab DAILY PO Last administered on 11/06/18 09:33; Admin Dose 1 TAB; Start 11/02/18 at 16:30 Silver Sulfadiazine (Thermazene 1% 25 Gm) 1 applic BID TOP Last administered on 11/06/18 09:34; Admin Dose 1 APPLIC; Start 11/02/18 at 21:00 Meropenem/Sodium Chloride 50 ml @ 100 mls/hr Q12 IVPB Last administered on 11/06/18 09:33; Admin Dose 100 MLS/HR; Start 11/04/18 at 14:30 Docusate Sodium (Colace) 250 mg DAILY PO Last administered on 11/06/18 09:33; Admin Dose 250 MG; Start 11/05/18 at 09:00 Polyethylene Glycol (Miralax) 8.5 gm DAILY PO Last administered on 11/06/18 09:33; Admin Dose 8.5 GM; Start 11/05/18 at 09:00 STEPHANIE CROW NP Nov 06, 2018 11:12
--- NOTE | 2018-11-06 11:34 | CONS ---
Consult Date/Type/Reason Admit Date/Time Oct 28, 2018 at 10:55 Initial Consult Date 10/28/18 Type of Consultation: cv Date/Time of Note DATE: 11/06/18 TIME: 11:33 Subjective Interventional cardiology follow-up progress note Subjective: Discussed with the staff. d/w Patient with no chest pain or pressure. no report of any active bleeding no report of shortness of breath . Events noted: Status post debridement 10/29/2018 10/30/18: EGD ( and incomplete colo) Objective: General: no acute distress HEENT: NC/AT. pupils are equal. round. NECK: NO JVD. no stridor. CV: RRR. systolic murmur; no gallop or rubs. PULM: no wheezing or rhonchi. GI: SOFT, NT, ND, no rebound or guarding Extremity: Right upper extremity is contracted Left hand finger edematous is in dressing neuro: awake and alert, OX2. Psych: calm and pleasant rectal: deferred Echocardiogram was personally reviewed which shows: Normal left ventricular systolic function. Normal left ventricular cavity size. Left ventricular wall thickness upper limits of normal. Ejection fraction is visually estimated at 65 %. Tissue Doppler/Mitral Doppler indices are within normal limits. Mild mitral leaflet calcification. Mild mitral annular calcification. Trace mitral regurgitation. No significant aortic stenosis or insufficiency. Aortic cusps appear mildly calcified. Normal appearance of the tricuspid valve. Estimated peak PA systolic pressure 34 mmHg. There is mild tricuspid regurgitation. CT Findings consistent with osteomyelitis of the posterior plantar calcaneus with adjacent soft tissue wound/ulcer. Objective Vitals Vital Signs Date Temp Pulse Resp B/P (MAP) Pulse Ox O2 O2 Flow FiO2 Time Delivery Rate 11/06/18 97.8 61 16 103/55 93 07:55 (71) 11/04/18 Room Air 14:44 11/04/18 2.0 08:00 Intake and Output 11/05/18 11/05/18 11/06/18 1515:00 23:00 07:00 IntakeIntake Total 50 ml 1450 ml BalanceBalance 50 ml 1450 ml Results/Medications Result Diagram: 11/06/18 0452 11/06/18 0452 Results 24 hrs Laboratory Tests Test 11/06/18 04:52 White Blood Count 11.4 H Red Blood Count 4.75 Hemoglobin 9.8 L Hematocrit 35.4 L Mean Corpuscular Volume 74.5 L Mean Corpuscular Hemoglobin 20.6 L Mean Corpuscular Hemoglobin Concent 27.7 L Red Cell Distribution Width Platelet Count 501 #H Mean Platelet Volume 9.7 Immature Granulocytes % 0.600 H Neutrophils % Segmented Neutrophils % (Manual) 79 H Lymphocytes % Lymphocytes % (Manual) 13 L Monocytes % Monocytes % (Manual) 4 Eosinophils % Eosinophils % (Manual) 2 Basophils % Basophils % (Manual) 2 Nucleated Red Blood Cells % 0.0 Immature Granulocytes # 0.070 H Neutrophils # Lymphocytes (Manual) 1.4 Lymphocytes # Monocytes # Monocytes # (Manual) 0.4 Eosinophils # Basophils # Basophils # (Manual) 0.2 H Nucleated Red Blood Cells # Platelet Estimate INCREASED Giant Platelets 7 H Polychromasia 1+ Hypochromasia 2+ Anisocytosis 2+ Microcytosis 2+ Macrocytosis 1+ Ovalocytes 1+ Sodium Level 139 Potassium Level 4.2 Chloride Level 103 Carbon Dioxide Level 31 Anion Gap 5 Blood Urea Nitrogen 14 Creatinine 0.43 L Est Glomerular Filtrat Rate mL/min > 60 Glucose Level 77 Calcium Level 8.7 Home Meds Reported Medications Metronidazole* (Flagyl*) 500 Mg Tablet, 500 MG PO BID, TAB 10/28/18 Sulfamethoxazole/Trimethoprim* (Bactrim Ds* Tablet) 1 Each Tablet, 2 TAB PO BID, TAB 10/28/18 Clindamycin Hcl* (Clindamycin Hcl*) 300 Mg Capsule, 300 MG PO Q8, CAP 10/28/18 Furosemide* (Furosemide*) 20 Mg Tablet, 20 MG PO DAILY, #60 TAB 10/28/18 Omeprazole* (Omeprazole*) 20 Mg Capsule.dr, 20 MG PO BID, #60 CAP 10/28/18 Baclofen* (Baclofen*) 10 Mg Tablet, 960 MCG INTRACATH DAILY, TAB 10/28/18 Medications Current Medications Ondansetron HCl (Zofran Inj) 4 mg Q6H PRN IV NAUSEA/VOMITING Last administered on 10/29/18at 23:35; Admin Dose 4 MG; Start 10/28/18 at 11:30 Acetaminophen (Tylenol Tab) 650 mg Q6H PRN PO .PAIN 1-3 OR TEMP Last administered on 10/31/18at 11:24; Admin Dose 650 MG; Start 10/28/18 at 11:30 Zolpidem Tartrate (Ambien) 5 mg QHS PRN PO .INSOMNIA; Start 10/28/18 at 11:30 Pantoprazole (Protonix Tab) 40 mg BID@0600,1800 PO Last administered on 11/06/18at 06:47; Admin Dose 40 MG; Start 10/28/18 at 18:00 Collagenase (Santyl) 1 applic DAILY TOP Last administered on 11/06/18 09:33; Admin Dose 1 APPLIC; Start 10/28/18 at 21:00 Patient Own Medication 1 ea Q24H IT ; Start 10/28/18 at 21:30 Oxycodone/ Acetaminophen (Percocet (5/ 325)) 1 tab Q4H PRN PO PAIN LEVEL 4-6; Start 10/29/18 at 09:00 Oxycodone/ Acetaminophen (Percocet (5/ 325)) 2 tab Q4H PRN PO PAIN LEVEL 6-10; Start 10/29/18 at 09:00 Enoxaparin Sodium (Lovenox) 40 mg DAILY SC Last administered on 11/06/18 09:33; Admin Dose 40 MG; Start 10/31/18 at 09:00 Daptomycin 410 mg/ Sodium Chloride 100 ml @ 200 mls/hr Q24H IVPB Last administered on 11/05/18 18:19; Admin Dose 200 MLS/HR; Start 10/30/18 at 17:00 Lubiprostone (Amitiza) 24 mcg BID PO Last administered on 11/06/18 09:33; Admin Dose 24 MCG; Start 10/30/18 at 21:00 IV Flush (NS 10 ml) 10 ml PRN PRN IV IV PROTOCOL; Start 10/31/18 at 13:30 Sodium Hypochlorite (Dakin'S (Dilute 40)) 1 applic DAILY IRR Last administered on 11/06/18 09:32; Admin Dose 1 APPLIC; Start 11/01/18 at 09:00 Lactobacillus Acidophilus/ Rhamnosus (Culturelle) 1 cap BID PO Last administere d on 11/06/18 09:33; Admin Dose 1 CAP; Start 11/02/18 at 21:00 Multivitamins Therapeutic (Theragran) 1 tab DAILY PO Last administered on 11/06/18 09:33; Admin Dose 1 TAB; Start 11/02/18 at 16:30 Silver Sulfadiazine (Thermazene 1% 25 Gm) 1 applic BID TOP Last administered on 11/06/18 09:34; Admin Dose 1 APPLIC; Start 11/02/18 at 21:00 Meropenem/Sodium Chloride 50 ml @ 100 mls/hr Q12 IVPB Last administered on 11/06/18 09:33; Admin Dose 100 MLS/HR; Start 11/04/18 at 14:30 Docusate Sodium (Colace) 250 mg DAILY PO Last administered on 11/06/18 09:33; Admin Dose 250 MG; Start 11/05/18 at 09:00 Polyethylene Glycol (Miralax) 8.5 gm DAILY PO Last administered on 11/06/18 09:33; Admin Dose 8.5 GM; Start 11/05/18 at 09:00 Assessment/Plan Hospital Course (Demo Recall) 1. Cardiovascular preop evaluation 2. Left finger infection/ osteomyelitis: Status post I&D 3. Severe anemia 4. History of anoxic brain injury and encephalopathy 5. Abnormal EKG but normal ejection fraction and echo 6. History of Haque's esophagus/vagina status post endoscopy 7. Leukocytosis Recommendations: Postop care/wound care as per ortho Transfusions as needed PPIs follow up with GI and ortho consultation recommendations. . transfusions prn. currently stable Thank you for his referral. We will continue to follow along with you as needed TRACY CHAUDHARY MD [facility] TRACY CHAUDHARY MD Nov 06, 2018 11:34
--- NOTE | 2018-11-06 13:23 | DS ---
Date/Time of Note Date/Time of Note DATE: 11/06/18 TIME: 13:21 Discharge Summary Admission/Discharge Info Admit Date/Time Oct 28, 2018 at 10:55 Discharge Date/Time Patient Condition: Stable Consults See prev report Hospital Course Please see previous dictated summary. Discharge was held to setup home IV abx and home health. Patient evaluated in detail today, vitals reviewed, remains stable for discharged. . Discharge Meds: Sometimes changes are made to final medication list after discharge summary has been dictated, hence for complete and accurate discharge meds, please review discharge med list in patient's chart. Thank you. . Home Meds Reported Medications Metronidazole* (Flagyl*) 500 Mg Tablet, 500 MG PO BID, TAB 10/28/18 Sulfamethoxazole/Trimethoprim* (Bactrim Ds* Tablet) 1 Each Tablet, 2 TAB PO BID, TAB 10/28/18 Clindamycin Hcl* (Clindamycin Hcl*) 300 Mg Capsule, 300 MG PO Q8, CAP 10/28/18 Furosemide* (Furosemide*) 20 Mg Tablet, 20 MG PO DAILY, #60 TAB 10/28/18 Omeprazole* (Omeprazole*) 20 Mg Capsule., 20 MG PO BID, #60 CAP 10/28/18 Baclofen* (Baclofen*) 10 Mg Tablet, 960 MCG INTRACATH DAILY, TAB 10/28/18 Follow-up Plan 1. Please review all medications with your homehealth nurse 2. Call Dr Collazo (Podiatry)'s office to make an appointment for further wound care Name, Degree: Vale Covington DPM Specialty: Podiatry Comments: Office Address: [address] [place] [address] [place] [address] Office Office 3. F/u with Dr Villaseñor as previously scheduled 4. F/u with PCP in 1-2 weeks . Primary Care Provider Not On Staff Doctor Time spent on discharge: < 30 minutes Pending Labs Laboratory Tests Test 11/06/18 04:52 White Blood Count 11.4 10^3/ul (4.8-10.8) Red Blood Count 4.75 10^6/ul (4.20-5.40) Hemoglobin 9.8 g/dl (12.0-16.0) Hematocrit 35.4 % (37.0-47.0) Mean Corpuscular Volume 74.5 fl (82.0-101.0) Mean Corpuscular Hemoglobin 20.6 pg (29.0-33.0) Mean Corpuscular Hemoglobin Concent 27.7 g/dl (32.0-37.0) Red Cell Distribution Width % (11.5-14.5) Platelet Count 501 10^3/UL (140-415) Mean Platelet Volume 9.7 fl (7.4-10.4) Immature Granulocytes % 0.600 % (0.001-0.429) Neutrophils % % (39.0-77.0) Segmented Neutrophils % (Manual) 79 % (39-77) Lymphocytes % % (15.0-51.0) Lymphocytes % (Manual) 13 % (15-51) Monocytes % % (0.0-11.0) Monocytes % (Manual) 4 % (0-11) Eosinophils % % (0.0-7.0) Eosinophils % (Manual) 2 % (0-7) Basophils % % (0.0-2.0) Basophils % (Manual) 2 % (0-2) Nucleated Red Blood Cells % 0.0 /100WBC (0.0-0.0) Immature Granulocytes # 0.070 10^3/ul (0.0-0.031) Neutrophils # 10^3/ul (1.6-7.5) Lymphocytes (Manual) 1.4 10^3/ul (0.8-2.9) Lymphocytes # 10^3/ul (0.8-2.9) Monocytes # 10^3/ul (0.3-0.9) Monocytes # (Manual) 0.4 10^3/ul (0.3-0.9) Eosinophils # 10^3/ul (0.0-0.5) Basophils # 10^3/ul (0.0-0.1) Basophils # (Manual) 0.2 10^3/ul (0.0-0.0) Nucleated Red Blood Cells # 10^3/ul (0.0-0.0) Platelet Estimate INCREASED Giant Platelets 7 % (0-0) Polychromasia 1+ (0-0) Hypochromasia 2+ (0-0) Anisocytosis 2+ (0-0) Microcytosis 2+ (0-0) Macrocytosis 1+ (0-0) Ovalocytes 1+ (0-0) Sodium Level 139 mmol/L (135-144) Potassium Level 4.2 mmol/L (3.5-5.1) Chloride Level 103 mmol/L (97-110) Carbon Dioxide Level 31 mmol/L (21-31) Anion Gap 5 (5-13) Blood Urea Nitrogen 14 mg/dl (7-20) Creatinine 0.43 mg/dl (0.44-1.00) Est Glomerular Filtrat Rate mL/min > 60 mL/min (>60) Glucose Level 77 mg/dl (70-220) Calcium Level 8.7 mg/dl (8.4-10.2) BIBI MUNIZ Nov 06, 2018 13:23
[2018-11-06 14:00] VITALS: BP 110/60; PULSE 62; RESP 16
[2018-11-06] MEDS: DAPTOMYCIN 410 MG in SOD CHLORIDE 0.9% 100 ML IVPB SCH (17:07)
== END 2018-11-06 18:40 | disposition home or self-care (01) | DRG 463 ==
LOC: SDS 07:38 → REC 10:55 → MS1 11:41 → PP2 10-29 22:50
PROVIDERS: ADMIT Orthopaedic Surgery Hand Surgery; ATTEND Orthopaedic Surgery Hand Surgery
PROC: 30233N1 Transfusion of Nonautologous Red Blood Cells into Peripheral Vein, Percutaneous Approach (ICD-10-PCS; 2018-10-28)
PROC: 0PBV0ZZ Excision of Left Finger Phalanx, Open Approach (ICD-10-PCS; 2018-10-29)
PROC: 0PCV0ZZ Extirpation of Matter from Left Finger Phalanx, Open Approach (ICD-10-PCS; principal; 2018-10-29 07:30)
PROC: 0DB68ZX Excision of Stomach, Via Natural or Artificial Opening Endoscopic, Diagnostic (ICD-10-PCS; 2018-10-30)
PROC: 0JBP0ZZ Excision of Left Lower Leg Subcutaneous Tissue and Fascia, Open Approach (ICD-10-PCS; 2018-10-31)
PROC: 02HV33Z Insertion of Infusion Device into Superior Vena Cava, Percutaneous Approach (ICD-10-PCS; 2018-10-31)
PROC: B548ZZA Ultrasonography of Superior Vena Cava, Guidance (ICD-10-PCS; 2018-10-31)
PROC: 0DJD8ZZ Inspection of Lower Intestinal Tract, Via Natural or Artificial Opening Endoscopic (ICD-10-PCS; 2018-11-01)
DX: M86.8X4 Other osteomyelitis, hand (principal); L89.323 Pressure ulcer of left buttock, stage 3; L89.313 Pressure ulcer of right buttock, stage 3; R53.2 Functional quadriplegia; S62.623B Displaced fracture of middle phalanx of left middle finger, initial encounter for open fracture; G93.1 Anoxic brain damage, not elsewhere classified; G81.91 Hemiplegia, unspecified affecting right dominant side; L98.498 Non-pressure chronic ulcer of skin of other sites with other specified severity; Z99.3 Dependence on wheelchair; S66.113A Strain of flexor muscle, fascia and tendon of left middle finger at wrist and hand level, initial encounter; K29.70 Gastritis, unspecified, without bleeding; K20.8 Other esophagitis; D50.0 Iron deficiency anemia secondary to blood loss (chronic); Z87.891 Personal history of nicotine dependence; S06.9X0S Unspecified intracranial injury without loss of consciousness, sequela; V89.2XXS Person injured in unspecified motor-vehicle accident, traffic, sequela; I25.10 Atherosclerotic heart disease of native coronary artery without angina pectoris; I25.2 Old myocardial infarction; W55.11XA Bitten by horse, initial encounter; S81.812A Laceration without foreign body, left lower leg, initial encounter; X58.XXXA Exposure to other specified factors, initial encounter
CPT/HCPCS: 36430; 36569; 71045; 73610; 73700; 74280; 75635; 76937; 80048; 80053; 81001; 81003; 82270; 82306; 82550; 83036; 83540; 83735; 84100; 84443; 84703; 85025; 85610; 85730; 86850; 86900; 86901; 86920; 87070; 87075; 88304; 88305; 88312; 88313; 90389; 93005; 93306; 93922; 97022; J0690; J1100; J1650; J1940; J1956; J2185; J2250; J2405; J2765; J2916; J3010; J3475; J3480; J7042; P9016; Q9967